=== PATIENT | female | born 1940 | race Caucasian/White ===

== ENCOUNTER 2021-03-29 01:52 | Outpatient (CLI) | payer MEDICARE, BC, SELFPAY ==
--- NOTE | 2021-03-29 15:15 | DI.CT_ITS ---
Exam(s) CT CHEST WO EXAM: CT CHEST WO CLINICAL HISTORY: F/U LUNG NODULE,R91.8. TECHNIQUE: Multi planar reconstructions were performed. CONTRAST MATERIAL: None COMPARISON: DX XR CHEST 2 VIEWS from 12/25/2020 (outside institution) FINDINGS: CHEST: LUNGS: Multiple radiodense foci in the right lung specifically in the anterior segment of the right u pper lobe, right middle lobe, and right lower lobe which correspond to the findings on the December 2020 outside institution chest x-ray. I suspect this may be aspirated material such as barium. There are no confluent infiltrates with air bronchograms. Similar findings are not seen in the opposite-left lung. There are no pleural effusions on either side. There are no focal findings in trachea and kali nstem bronchi. There is no bronchiectasis. MEDIASTINUM: There is no obvious hilar nor mediastinal adenopathy. No supraclavicular adenopathy. T here is no axillary adenopathy. Patient is cachectic CARDIAC: Heart size is normal. There is no pericardial effusion.Diameter of the ascending thoracic a lasha is slightly prominent, measuring 3.8 cm. The diameter of the mid aortic arch is 2.8 cm. The di ameter proximal descending thoracic aorta is 2.5 cm and the diameter of the distal thoracic aorta is 2.4 cm. VISUALIZED UPPER ABDOMEN:No obvious adrenal masses. OSSEOUS: No significant osseous lesions.. IMPRESSION: 1. Multiple foci of radio dense material seen in the right upper lobe, right middle lobe, and right l ower lobe, as seen on outside chest x-ray of December 2020. No associated pleural effusions. No distinct mass. 2. The above probably represents prior aspiration barium are other radiodense material. Correlation with prior barium utilization medical imaging studies is recommended. 3. The opposite-left lung is clear. There are no pleural effusions. RADIATION DOSE DELIVERED: 306.13mGy.cm Total DLP DATA REPOSITORY: All CT scans at this facility are submitted to the National Radiology Data Registry (NRDR) Dose Index Registry (DIR) with the [employer] (ACR). RADIATION OPTIMIZATION: All CT scans at this facility use at least one of these dose optimization te chniques: automated exposure control; mA and/or kV adjustment per patient size (includes targeted exa ms where dose is matched to clinical indication); or iterative reconstruction.
== END 2021-03-29 02:12 ==
PROVIDERS: PCP Nurse Practitioner Family; Visit Provider Nurse Practitioner Family
DX: R91.8 Other nonspecific abnormal finding of lung field (principal)
CPT/HCPCS: 71250

== ENCOUNTER 2021-04-25 00:56 | Outpatient (CLI) | payer MEDICARE, BC, SELFPAY ==
--- NOTE | 2021-04-25 | DI.MAMMO_ITS ---
Exam(s) MAMMO SCREENING EXAM: MAMMO SCREENING CLINICAL HISTORY: SCREENING, Z12.31 TECHNIQUE: Mammograms were interpreted according to the usual protocol including computer analysis w [employer] CAD system, tomosynthesis and C-view imaging. COMPARISON: 2015 through 2019 from [facility] in [facility] FINDINGS: The breasts are composed of heterogeneously dense fibroglandular densities, Breast Density category C . No suspicious masses or suspicious microcalcifications are seen. No skin thickening or abnormal axillary lymph nodes are seen. There has been no significant change from prior exams. IMPRESSION: BI-RADS Category 1, Negative mammogram. Yearly screening mammography is recommended. Breast Density Category C, heterogeneously Dense. The mammogram demonstrates the patient's breast tissue is dense. Dense breast tissue is very common a nd is not abnormal but dense breast tissue can make it harder to find cancer on a mammogram. Also, de nse breast tissue may increase breast cancer risk. This information about the result of the mammogram report was provided to the patient to raise their awareness. Use this report when you speak with the patient about their risks for breast cancer, which includes their family history. At that time, you may recommend additional screening tests (Ultrasound or MRI) as they might be useful based on their r isk. A negative radiographic report should not delay biopsy if a dominant or clinically suspicious mass is present. Up to ten percent of cancers are not identified on mammography. A negative report may reinforce clinical impression. Adenosis and dense breasts may obscure an underlying neoplasm. False positive reports average 6 to 10%.
== END 2021-04-25 01:16 ==
PROVIDERS: PCP Nurse Practitioner Family; Visit Provider Nurse Practitioner Family
DX: Z12.31 Encounter for screening mammogram for malignant neoplasm of breast (principal)
CPT/HCPCS: 77063; 77067

== ENCOUNTER 2021-05-21 15:10 | Outpatient (CLI) | payer MEDICARE, BC, SELFPAY ==
--- NOTE | 2021-05-21 14:45 | DI.RAD_ITS ---
Exam(s) XR HIP PELVIS ADULT BL EXAM: XR HIP PELVIS ADULT BL CLINICAL HISTORY: bilateral hip pain. TECHNIQUE: 2D digital imaging was performed. COMPARISON: No exams were available for comparison FINDINGS: No pelvic nor hip fractures. However, which are advanced osteoarthritic degenerative change noted. There is significant joint space narrowing bilaterally as well as osteophytes at level of both femora l heads. No ominous osseous lesions. Degenerative subarticular cysts are noted in both hips. IMPRESSION: Advanced degenerative changes noted both hips. DATA REPOSITORY: RADIATION DOSE DELIVERED:
== END 2021-05-21 15:11 | disposition home or self-care (01) ==
LOC: DIORS 15:11
PROVIDERS: PCP Nurse Practitioner Family; Referring Provider Nurse Practitioner Family; Visit Provider Student in an Organized Health Care Education/Training Program
DX: M25.551 Pain in right hip; M25.552 Pain in left hip; M16.0 Bilateral primary osteoarthritis of hip
CPT/HCPCS: 73521; 99203

== ENCOUNTER 2021-05-31 01:50 | Outpatient (CLI) | payer MEDICARE, BC, SELFPAY ==
--- NOTE | 2021-05-31 14:59 | W.PROCNOTE ---
Date of service: 05/31/21 Time of Service: 14:59 Procedure Note Date of procedure: 05/31/21 Procedure: Bilateral Hip Injection with Fluoroscopic Guidance Surgeon/Proceduralist/Physician: Yobani Hagen Procedure Diagnosis: Bilateral Hip Osteoarthritis Procedure Indications: Aida has had persistent pain of the BILATERAL hip and groin. Noninvasive measures have been tried. To serve as both diagnostic and therapeutic, an injection under fluoroscopy was recommended. I had discussed the risks of the procedure and the patient elected to proceed. Procedure Description: Aida was greeted in the flouroscopy room. The consent was reviewed with the patient and signed. The patient was then placed in the supine position on the fluoroscopy table. The RIGHT hip was then prepped with Chloraprep. The anterolateral injection starting point was identiifed by bony landmarks and fluoroscopy. The skin and soft tissue in the tract of the injection was anesthetized with 1% Lidocaine. A spinal needle was then inserted deep into the hip joint at the level of the lateral femoral neck under fluoroscopic guidance. A small amount of Omnipaque solution was injected to confirm intraarticular placement. Once confirmed, the hip was injected with 5cc of 0.5% Bupivicaine and 80mg of Depo-Medrol. A bandaid was placed on the injection site. The LEFT hip was then prepped with Chloraprep. The anterolateral injection starting point was identiifed by bony landmarks and fluoroscopy. The skin and soft tissue in the tract of the injection was anesthetized with 1% Lidocaine. A spinal needle was then inserted deep into the hip joint at the level of the lateral femoral neck under fluoroscopic guidance. A small amount of Omnipaque solution was injected to confirm intraarticular placement. Once confirmed, the hip was injected with 5cc of 0.5% Bupivicaine and 80mg of Depo-Medrol. A bandaid was placed on the injection site. The patient tolerated the procedure well.
--- NOTE | 2021-05-31 15:07 | DI.RAD_ITS ---
Exam(s) RF JOINT INJECTION FLUORO GUID EXAM: RF JOINT INJECTION FLUORO GUID CLINICAL HISTORY: R HIP INJ UNDER FLUORO,rt hip pain, m25.551 TECHNIQUE: Fluoroscopy provided. Radiologist not present. CONTRAST MATERIAL: None COMPARISON: No exams were available for comparison FINDINGS: Fluoroscopy was provided for Dr. Hagen during right hip therapeutic injection.. Submitted image(s) reveal needle tip placement laterally at the junction of the femoral head and neck . Intra-articular contrast was injected. Please refer to the procedure report for complete details. Cumulative Dose: veronika Marx=0.165 mGy IMPRESSION: RADIATION DOSE DELIVERED:
--- NOTE | 2021-05-31 15:08 | DI.RAD_ITS ---
Exam(s) RF JOINT INJECTION FLUORO GUID EXAM: RF JOINT INJECTION FLUORO GUID CLINICAL HISTORY: L HIP INJ UNDER FLUORO,lt hip pain, m25.552 TECHNIQUE: Fluoroscopy provided. Radiologist not present. CONTRAST MATERIAL: None COMPARISON: No exams were available for comparison FINDINGS: Fluoroscopy was provided for Dr. Hagen during therapeutic left hip injection. Submitted image(s) reveal lateral approach needle with distal tip at the junction of the lateral neck and head of the femur. Contrast injected intra-articularly Please refer to the procedure report for complete details. Cumulative Dose: Ka,r=0.094 mGy IMPRESSION: RADIATION DOSE DELIVERED:
[2021-05-31] MEDS: methylPREDNISolone ACETATE 80 MG/ML VIAL IM ×2 (15:10→15:12)
[2021-05-31] MEDS: Omnipaque 300 MG/ML 10 ML BTL IJ ×2 (15:10→15:15)
[2021-05-31] MEDS: Bupivacaine 0.5% Pres-Free 10 ML VIAL 5 ML IJ ×3 (15:11→15:17)
== END 2021-05-31 02:10 ==
PROVIDERS: PCP Nurse Practitioner Family; Visit Provider Student in an Organized Health Care Education/Training Program
DX: M25.551 Pain in right hip (principal); M25.552 Pain in left hip; M16.0 Bilateral primary osteoarthritis of hip; R10.31 Right lower quadrant pain; R10.32 Left lower quadrant pain
CPT/HCPCS: 20610; 77002; J1040

== ENCOUNTER 2021-07-06 20:57 | Outpatient (REF) | payer MEDICARE, BC, SELFPAY ==
[2021-07-06 19:48] LABS: HCT 41.5 % (36.0-46.0); MCH 27.3 pg (27.0-33.0); MCHC 31.3 % (32.0-36.0); MPV 8.7 fL (8.0-11.0); Platelet Count 250 10^3/uL (130-400); RBC 4.77 10^6/uL (3.93-5.22); RDW 13.7 % (11.7-14.6); RDW-SD 43.8 fL; WBC 5.19 10^3/uL (4.4-10.8)
[2021-07-06 20:25] LABS: Anion Gap 8.4 mmol/L (3-11); BUN 22 mg/dL (7-18); CO2 29.6 mmol/L (21.0-32.0); CREATININE 0.7 mg/dL (0.55-1.02); Calcium 9.3 mg/dL (8.5-10.1); Chloride 103 mmol/L (98-107); Glucose 104 mg/dL (74-106); Potassium 3.7 mmol/L (3.5-5.1); Sodium 141 mmol/L (136-145); TSH (W/Ref FT4) 0.33 uIU/mL (0.36-3.74)
[2021-07-06 20:49] LABS: FREE T4 1.17 ng/dL (0.76-1.46)
== END 2021-07-06 20:58 | disposition home or self-care (01) ==
LOC: NCHCN 20:57
PROVIDERS: PCP Nurse Practitioner Family; Visit Provider Nurse Practitioner Family
DX: E03.9 Hypothyroidism, unspecified (principal)
CPT/HCPCS: 80048; 85027; 84439; 84443

== ENCOUNTER 2021-08-13 11:45 | Outpatient (CLI) | payer MEDICARE, BC, SELFPAY ==
--- NOTE | 2021-08-13 11:30 | DI.RAD_ITS ---
Exam(s) XR SHOULDER RT COMPLETE 2+V EXAM: XR SHOULDER RT COMPLETE 2+V CLINICAL HISTORY: right shoulder pain. TECHNIQUE: 2D digital imaging was performed. COMPARISON: No exams were available for comparison FINDINGS: BONES: No acute fracture is present. No bony destructive lesion is seen. JOINTS: No dislocation present. Mild spurring AC joint and glenoid. SOFT TISSUE: Normal. IMPRESSION: Mild degenerative changes. DATA REPOSITORY: RADIATION DOSE DELIVERED:
== END 2021-08-13 11:46 | disposition home or self-care (01) ==
LOC: DIORS 11:46
PROVIDERS: PCP Nurse Practitioner Family; Referring Provider Nurse Practitioner Family; Visit Provider Student in an Organized Health Care Education/Training Program
DX: M25.511 Pain in right shoulder (principal); M19.011 Primary osteoarthritis, right shoulder; M75.81 Other shoulder lesions, right shoulder; M16.0 Bilateral primary osteoarthritis of hip
CPT/HCPCS: 99212; 73030

== ENCOUNTER 2022-03-22 15:41 | Outpatient (REF) | payer MEDICARE, BC, SELFPAY ==
--- NOTE | 2022-03-22 14:15 | SKI_PTH ---
PATIENT: Aida Monaco LOC: [facility] U#:[id number] AGE/SX: 81/F ROOM: RE03/22/[address]: SOCORRO Weber : 1940 BED: DIS: 03/22/2022 SPEC #: [id number] RECD: 03/22/22 17:55 STATUS: SAMIR REJuan C #: [id number] JAYDA: 03/22/22 14:[address]: Edilberto Mays DEPT: Surgical Specimen RECD BY: Kerri Gasca ENTERED: 03/22/22 17:56 SP TYPE: CHAIM BRIGHT DR: Carolin Minor Tissues: 1 - SKIN BIOPSY(SHAVE/PUNCH) 2 - SKIN BIOPSY(SHAVE/PUNCH) Procedures: SKIN LEVEL 4 Comments: [id number]
== END 2022-03-22 15:42 | disposition home or self-care (01) ==
LOC: LBN 15:41
PROVIDERS: PCP Nurse Practitioner Family; Visit Provider Physician Assistant
DX: L57.0 Actinic keratosis (principal); B07.9 Viral wart, unspecified
CPT/HCPCS: 88305

== ENCOUNTER 2022-05-23 08:42 | Emergency (ER) | payer MEDICARE, BC, SELFPAY ==
--- OUTSIDE RECORDS SUMMARY | 2022-05-23 08:48 | XMS_ITS ---
:1940 Author Name Keyona Reyna Care Team Providers Name Role Phone Keyona Reyna Unavailable Unavailable PROBLEMS Type Condition ICD9-CM PMO50-MK Onset Condition SNOMED Cod e Code Code Dates Status Problem Abnormal results of R94.6 Jul, Active 610580394 thyroid function 2019 studies Problem Age-related M81.0 Jul, Active 28688138 2 osteoporosis without 2018 current pathological fracture Problem Postprocedural E89.0 Dec, Active 69093 002 hypothyroidism 2019 Problem Body mass index (BMI) Z68.21 Jul, Active 35422511 21.0-21.9, adult 2018 Problem Hypercalcemia 275.42 Apr, Active 547033 09 2014 Problem Body mass index (BMI) Z68.1 Jul, Active 230958719 19 or less, adult 2017 Problem Unspecified vitamin D 268.9 Apr, Active 37821988 deficiency 2014 Problem Body mass index (BMI) Z68.20 Jan, Active 23603950 20.0-20.9, adult 2017 Problem Hypercalcemia E83.52 Aug, Active 838832 09 2019 Problem Vitamin D deficiency, E55.9 Apr, Active 01916642 unspecified 2014 Problem Primary E21.0 Jul, Active 49727216 hyperparathyroidism 2018 Problem Impaired fasting 790.21 Apr, Active 390 398511 glucose 2014 ALLERGIES No Known Allergies ENCOUNTERS Encounter Location Date Diagnosis [facility] [address] Dec, [facility] [address] [place] [address] [facility] [address] Sep, [place] [address] [facility] [address] Sep, Prima ry hyperparathyroidism [facility] [address] E21.0 ; Post procedural [place] hypothyroidism E89.0 and [address] Age-related oste oporosis without current pathological fracture M81.0 [facility] [address] Jun, [facility] [address] [place] [address] [facility] [address] Apr, [place] [address] [facility] [address] Apr, [place] [address] [facility] [address] Mar, [facility] [address] [place] [address] [facility] [address] Mar, Prima ry hyperparathyroidism [facility] [address] E21.0 ; Post procedural [place] hypothyroidism E89.0 and [address] Age-related oste oporosis without current pathological fracture M81.0 [facility] [address] Mar, [address] [place] [address] [facility] [address] Jul, [facility] [address] [place] [address] [facility] [address] Jun, Prima ry hyperparathyroidism [address] E21.0 ; Post procedural [place] hypothyroidism E89.0 and [address] Age-related oste oporosis without current pathological fracture M81.0 [facility] Do not use Mar, [place] [address] [facility] Do not use Mar, [place] [address] [facility] [address] Dec, Prima ry hyperparathyroidism [address] E21.0 ; Post procedural [place] hypothyroidism E89.0 and [address] Age-related oste oporosis without current pathological fracture M81.0 [facility] [address] Aug, Prima ry hyperparathyroidism [address] E21.0 ; Hype rcalcemia E83.52 [place] ; Age-related osteoporosis [address] without current pathological fracture M81.0 a nd Abnormal results of thyro id function studies R94.6 UNKNOWN Aug, Primary hyperpar athyroidism E21.0 ; Hypercal cemia E83.52 and Abnormal res ults of thyroid function studies R94.6 UNKNOWN Jul, Primary hyperpar athyroidism E21.0 and Abnorm al results of thyroid function studies R94.6 [facility] [address] [place] [address] Jan, Prima ry hyperparathyroidism [address] E21.0 and Virgilio dy mass index [place] (BMI) 21.0-21. 9, adult Z68.21 [address] [facility] [address] [place] [address] Jan, Prima ry hyperparathyroidism [address] E21.0 ; Marisabel min D deficiency, [place] unspecified E5 5.9 ; [address] Age-related oste oporosis without current pathological fracture M81.0 a nd Body mass index (BMI) 21.0 -21.9, adult Z68.21 [facility] [address] [place] [address] Jul, Prima ry hyperparathyroidism [address] E21.0 ; Age- related [place] osteoporosis w [facility] current [address] pathological fra cture M81.0 and Body mass in dex (BMI) 21.0-21.9, adult Z68.21 [facility] [address] [place] [address] Jan, Prima ry hyperparathyroidism [address] E21.0 ; Age- related [place] osteoporosis w [facility] current [address] pathological fra cture M81.0 and Body mass in dex (BMI) 20.0-20.9, adult Z68.20 [facility] [address] [place] [address] Jul, Prima ry hyperparathyroidism [address] E21.0 ; Age- related [place] osteoporosis w [facility] current [address] pathological fra cture M81.0 and Body mass in dex (BMI) 19 or less, adult Z 68.1 [facility] [address] [place] [address] Jan, Prima ry hyperparathyroidism [address] E21.0 ; Marisabel min D deficiency, [place] unspecified E5 5.9 and [address] Age-related oste oporosis without current pathological fracture M81.0 [facility] [address] [place] [address] Apr, Prima ry hyperparathyroidism [address] E21.0 and Ag e-related [place] osteoporosis w [facility] current [address] pathological fra cture M81.0 [facility] [address] [place] [address] October, [address] [place] [address] [facility] [address] [place] [address] Apr, Unspe cified vitamin D [address] deficiency 2 68.9 ; [place], [place] Hypercalcemia 275.42 and [address] Impaired fasting glucose 790.21 [facility] [address] [place] [address] Jan, [address] [place] [address] [facility] [address] [place] [address] Jul, [address] [place] [address] [facility] [address] [place] [address] Apr, Unspe cified vitamin D [address] deficiency 2 68.9 ; [place], [place] Hypercalcemia 275.42 and [address] Impaired fasting glucose 790.21 IMMUNIZATIONS Vaccine Route Administration Date Status Prolia 60mg / 55606 SC Subcutaneous September 19, 2020 Administered SOCIAL HISTORY Never Assessed REASON FOR REFERRAL FUNCTIONAL STATUS PLAN OF CARE Activity Details Future Test COMP. METABOLIC PANEL (14) ( CMP14) 14052036 Future Test TSH+Free T4 20210119 Future Test COMP. METABOLIC PANEL (14) ( CMP14) [id number] Future Test TSH+Free T4 32106588 Future Test bone density, dual energy x- ray absorptiometry 20200215 Future Test COMP. METABOLIC PANEL (14) ( CMP14) 20200117 Future Test TSH+FREE T4 20200117 VITAL SIGNS Temperature 97.5 degrees Fahrenheit 2020-03-23 Weight 102 lbs 2020-09-19 Height 61.0 in 2020-09-19 BMI 19.27 kg/m2 2020-09-19 Blood pressure systolic 118 mm Hg 2020-09-19 Blood pressure diastolic 70 mm Hg 2020-09-19 MEDICATIONS Medication Instructions Dosage Frequency Start End Duration Statu s Date Date Levothyroxine Orally Once a 1 tablet 24h 90 days Act scout Sodium 75 MCG day in the morning on an empty stomach Metoprolol Orally Once a 1/2 tablet 24h 30 day(s) Ac tive Succinate ER 25 day MG Levothyroxine Orally Once a 1 tablet 24h Jul, day(s) A ctive Sodium 75 MCG day in the 2019 morning on an empty stomach Aspirin 81 81 MG Orally Once a 1 tablet 24h Active day DIVALPROEX 250 PO QD 1 24h Jan, PROCEDURES Procedure Date Ordered Result Body Site THER/PROPH/DIAG INJ- SC/IM September 19, 2020 INJECTION DENOSUMAB 1 MG September 19, 2020 RESULTS Name Result Date Reference Range [facility] 2020-03-20 A/G Ratio 1.9 1.2-2.2 Albumin 4.2 3.7-4.7 Alkaline Phosphatase 60 39-117 ALT (SGPT) 13 0-32 AST (SGOT) 43 0-40 Bilirubin, Total 0.4 0.0-1.2 BUN 17 8-27 BUN/Creatinine Ratio 19 12-28 Calcium 9.4 8.7-10.3 Carbon Dioxide, Total 25 20-29 Chloride 105 96-106 Creatinine 0.90 0.57-1.00 eGFR If Africn Am 71 >59 eGFR If NonAfricn Am 62 >59 Globulin, Total 2.2 1.5-4.5 Glucose 109 65-99 Potassium 4.1 3.5-5.2 Protein, Total 6.4 6.0-8.5 Sodium 145 134-144 [facility] 2019-07-12 ALBUMIN/GLOBULIN RATIO 2.5 1.0-2.5 ALBUMIN 4.7 3.6-5.1 ALKALINE PHOSPHATASE 45 33-130 ALT 16 6-29 AST 37 10-35 BILIRUBIN, TOTAL 0.5 0.2-1.2 UREA NITROGEN (BUN) 20 7-25 BUN/CREATININE RATIO NOT APPLICABLE 6-22 CALCIUM 10.0 8.6-10.4 CARBON DIOXIDE 31 20-32 CHLORIDE 102 98-110 CREATININE 0.83 0.60-0.93 eGFR 79 > OR = 60 eGFR NON-AFR. THAI 68 > OR = 60 GLOBULIN 1.9 1.9-3.7 GLUCOSE 98 65-99 POTASSIUM 4.3 3.5-5.3 PROTEIN, TOTAL 6.6 6.1-8.1 SODIUM 142 135-146 TSH+Free T4 2020-03-20 T4,Free(Direct) 1.27 0.82-1.77 TSH 2.560 0.450-4.500 TSH+FREE T4 2019-07-12 T4, FREE 1.4 0.8-1.8 TSH 1.31 0.40-4.50 VITAMIN D,25-OH,TOTAL,IA COMMENT VITAMIN D,25-OH,TOTAL,IA 49 ng/mL PTH, INTACT AND CALCIUM CALCIUM 9.7 mg/dL Calcium SerPl-mCnc PARATHYROID HORMONE, INTACT 81 pg/mL PTH-Intact SerPl-mCnc BASIC METABOLIC PANEL BASIC METABOLIC PANEL BUN/CREATININE RATIO NOT APPLICABLE (calc) CALCIUM 9.7 mg/dL CARBON DIOXIDE 29 mmol/L CHLORIDE 102 mmol/L COMMENT Creatinine 0.72 mg/dL eGFR 95 mL/min/1.73m2 eGFR NON-AFR. THAI 82 mL/min/1.73m2 GLUCOSE 92 mg/dL POTASSIUM 4.2 mmol/L SODIUM 141 mmol/L UREA NITROGEN (BUN) 18 mg/dL VITAMIN D,25-OH,TOTAL,IA COMMENT VITAMIN D,25-OH,TOTAL,IA 66 ng/mL CALCIUM, IONIZED Ca-I SerPl-mCnc CALCIUM, IONIZED 5.9 mg/dL PTH, INTACT AND CALCIUM CALCIUM 10.6 mg/dL Calcium SerPl-mCnc PARATHYROID HORMONE, INTACT 59 pg/mL PTH-Intact SerPl-mCnc CALCIUM, IONIZED Ca-I SerPl-mCnc CALCIUM, IONIZED 5.6 mg/dL PTH, INTACT AND CALCIUM CALCIUM 10.5 mg/dL Calcium SerPl-mCnc PARATHYROID HORMONE, INTACT 55 pg/mL PTH-Intact SerPl-mCnc BASIC METABOLIC PANEL W/eGFR BUN SerPl-mCnc BUN/Creat SerPl BUN/CREATININE RATIO NOT APPLICABLE (calc) CALCIUM 9.5 mg/dL Calcium SerPl-mCnc CARBON DIOXIDE 27 mmol/L CHLORIDE 105 mmol/L Chloride SerPl-sCnc CO2 SerPl-sCnc COMMENT Creat SerPl-mCnc Creatinine 0.70 mg/dL eGFR 100 mL/min/1.73m2 eGFR NON-AFR. THAI 87 mL/min/1.73m2 GFR/BSA pred.black SerPl MDRD-vRate GFR/BSA.pred SerPl MDRD-vRate GLUCOSE 105 mg/dL Glucose [facility] POTASSIUM 4.3 mmol/L Potassium SerPl-sCnc SODIUM 141 mmol/L Sodium SerPl-sCnc UREA NITROGEN (BUN) 25 mg/dL VITAMIN D, 25-HYDROXY, LC/MS/MS 25(OH)D3 [facility] VITAMIN D, 25 OH, D2 VITAMIN D, 25 OH, D3 VITAMIN D, 25 OH, TOTAL VITAMIN D, 25-OH, D2 VITAMIN D, 25-OH, D3 VITAMIN D, 25-OH, TOTAL VITAMIN D,25-OH,TOTAL,IA 43 ng/mL PHOSPHATE ( PHOSPHORUS) PHOSPHATE ( PHOSPHORUS) 2.8 mg/dL Phosphate [facility] PTH, INTACT AND CALCIUM CALCIUM 9.5 mg/dL Calcium [facility] PARATHYROID HORMONE, INTACT 75 pg/mL PTH-Intact [facility] BASIC METABOLIC PANEL W/eGFR BUN [facility] BUN/Creat SerP BUN/CREATININE RATIO NOT APPLICABLE (calc) CALCIUM 10.3 mg/dL Calcium [facility] CARBON DIOXIDE 29 mmol/L CHLORIDE 104 mmol/L Chloride [facility] CO2 SerPl-sCnc COMMENT Creat SerPl-nc Creatinine 0.85 mg/dL eGFR 80 mL/min/1.73m2 eGFR NON-AFR. THAI 69 mL/min/1.73m2 GFR/BSA pred.black SerPl MDRD-vRate GFR/BSA.pred SerPl MDRD-vRate GLUCOSE 96 mg/dL Glucose [facility] POTASSIUM 4.5 mmol/L Potassium SerPl-sCnc SODIUM 144 mmol/L Sodium [facility] UREA NITROGEN (BUN) 19 mg/dL VITAMIN D, 25-HYDROXY, LC/MS/MS 25(OH)D3 [facility] VITAMIN D, 25 OH, D2 <4 ng/mL VITAMIN D, 25 OH, D3 41 ng/mL VITAMIN D, 25 OH, TOTAL 41 ng/mL VITAMIN D, 25-OH, D2 VITAMIN D, 25-OH, D3 VITAMIN D, 25-OH, TOTAL VITAMIN D,25-OH,TOTAL,IA PHOSPHATE ( PHOSPHORUS) PHOSPHATE ( PHOSPHORUS) 3.5 mg/dL Phosphate SerPl-mCnc CALCIUM, IONIZED Ca-I SerPl-mCnc CALCIUM, IONIZED TNP mg/dL PTH, INTACT AND CALCIUM CALCIUM 10.5 mg/dL Calcium SerPl-mCnc PARATHYROID HORMONE, INTACT 56 pg/mL PTH-Intact SerPl-mCnc BASIC METABOLIC PANEL W/eGFR BUN SerPl-mCnc BUN/Creat SerPl BUN/CREATININE RATIO NOT APPLICABLE (calc) CALCIUM 10.3 mg/dL Calcium SerPl-mCnc CARBON DIOXIDE 30 mmol/L CHLORIDE 104 mmol/L Chloride SerPl-sCnc CO2 SerPl-sCnc COMMENT Creat SerPl-mCnc Creatinine 0.85 mg/dL eGFR 80 mL/min/1.73m2 eGFR NON-AFR. THAI 69 mL/min/1.73m2 GFR/BSA pred.black SerPl MDRD-vRate GFR/BSA.pred SerPl MDRD-vRate GLUCOSE 100 mg/dL Glucose [facility] POTASSIUM 4.3 mmol/L Potassium SerPl-sCnc SODIUM 145 mmol/L Sodium SerPl-sCnc UREA NITROGEN (BUN) 24 mg/dL Hemoglobin A1c Estimated Average Glucose Hemoglobin A1c 5.6 % of total Hgb Hgb A1c MFr Bld VITAMIN D, 25-HYDROXY, LC/MS/MS 25(OH)D3 [facility] VITAMIN D, 25 OH, D2 <4 ng/mL VITAMIN D, 25 OH, D3 35 ng/mL VITAMIN D, 25 OH, TOTAL 35 ng/mL VITAMIN D, 25-OH, D2 VITAMIN D, 25-OH, D3 VITAMIN D, 25-OH, TOTAL VITAMIN D,25-OH,TOTAL,IA CALCIUM, 24 HOUR URINE (W/ CREATININE) 24 HR URINE VOLUME Calcium 24h Ur-mRate CALCIUM, 24 HOUR URINE 220 mg/24 h Calcium/creat 24H Ur-mRto CALCIUM/CREATININE RATIO 212 mg/g creat Creat 24h Ur-mRate CREATININE, 24 HOUR URINE 1.04 g/24 h CALCIUM, IONIZED Ca-I SerPl-mCnc CALCIUM, IONIZED 5.7 mg/dL PTH, INTACT AND CALCIUM CALCIUM 10.3 mg/dL Calcium SerPl-mCnc PARATHYROID HORMONE, INTACT 42 pg/mL PTH-Intact SerPl-mCnc REASON FOR VISIT Insurance Providers [facility] Member Patient Patient Patient Patient Patient Subscriber Subscriber Subscriber Group Insurance Plan Plan Plan Plan ID Relationship Address Phone Name Date of ID Name Date of No Type Insurance Insurance Insurance Coverage to Subscriber Address Phone Name Dates Medicare [phone] Medicare self Aida [id number] [facility] [id number] [address] [facility] [address] [employer] [phone] [employer] self Aida [id number] Y [id number] [address] [facility] [address] [place] [place] [address] [facility] [address] MEDICAL (GENERAL) HISTORY Type Description Date Medical History migraine headaches Medical History Hypothyroidism Medical History hyperparathyroidism Medical History osteoporosis Surgical History cataract surgery ,notes : bilaterally 20 16
--- OUTSIDE RECORDS SUMMARY | 2022-05-23 08:48 | XMS_ITS ---
:1940 Author Organization [facility] Otolaryngology Address [address], [place] [id number] Care Team Providers Name Role Phone Edilberto Mays Unavailable Unavailable PROBLEMS Type Condition ICD9-CM NNM15-OX Onset Condition SNOMED Cod e Code Code Dates Status Problem Anger R45.4 Active 34627360 Problem Colon polyp K63.5 Active 03601259 Problem Hematuria R31.9 Active 80705886 Problem Hyperparathyroidism E21.3 Active 39839454 Problem Hip pain M25.559 Active 65144799 Problem Lung nodule R91.1 Active 32399579 5 Problem Shoulder pain, right M25.511 Active 256063893 Problem Gas R14.3 Active 92344939 Problem Abdominal discomfort R10.9 Active 47375759 Problem Osteoporosis M81.0 Active 5062349 6 ALLERGIES No Known Allergies ENCOUNTERS Encounter Location Date Diagnosis [address], [place], [place] sm of unspecified [facility] [address] be havior of bone, soft [place], [place] tissue, and skin D49.[id number], [place], [facility] at [facility] 5 [address] [place], [place] [id number] Gastroenterology [address] [place] [address] Jan, Upper abdomin al pain [address] R10.10 ; Pyrosis R12 ; [place], [place] Dyspepsia R10.13 ; [id number] Fecal urgency R1 5.2 ; Rectal discomfor t K62.89 and Colon cancer screening Z12.11 Gastroenterology [address] [facility] [address] Jan, [address] [place], [place] [id number] IMMUNIZATIONS No Known Immunizations SOCIAL HISTORY Never Assessed REASON FOR REFERRAL FUNCTIONAL STATUS PLAN OF CARE Activity Details Follow Up prn Reason:calling pathology results VITAL SIGNS Height 65 in 2022-03-22 Height 65 in 2022-03-21 Height 65 in 2022-02-12 Weight 104 lbs 2022-03-22 Weight 104 lbs 2022-02-12 Temperature 95.8 degrees Fahrenheit 2022-02-12 Heart Rate 88 /min 2022-03-22 Heart Rate 77 /min 2022-02-12 Oximetry 97 2022-03-22 Oximetry 95 2022-02-12 BMI 17.30 kg/m2 2022-03-22 BMI 17.30 kg/m2 2022-02-12 Blood pressure systolic 130 mm Hg 2022-03-22 Blood pressure diastolic 72 mm Hg 2022-03-22 MEDICATIONS Medication Instructions Dosage Frequency Start End Duration Statu s Date Date Citracal +D3 as directed Active 250-107-500 MG-MG-UNIT Multivitamin - Orally Once a 1 tablet 24h 30 day(s) Active day Omeprazole 40 Orally Once a 1 capsule 24h Jan, day(s) Not-Takin MG day 30 minutes 2021 g before morning meal SUMAtriptan - as directed Active Celecoxib 200 Orally Once a 1 capsule 24h 30 day(s) Active MG day with food Levo-T 75 MCG Orally Once a 1 tablet in 24h 30 day(s ) Active day the morning on an empty stomach [id number] Orally every 6 2 tablets 6h A ctive Buffered hrs as needed 227-194-33 MG Prolia 60 MG/ML as directed Acti ve PROCEDURES Procedure Date Ordered Result Body Site SHAVE FACE .6 - 1.0 CM Mar 22, 2022 SHAVE FACE <.5 CM Mar 22, 2022 RESULTS No Results REASON FOR VISIT Skin Follow Up, ENT Hx of skin cancer, chart preload, GI-abdominal discomfort Insurance Providers [facility] Member Patient Patient Patient Patient Patient Subscriber Subscriber Subscriber Group Insurance Plan Plan Plan Plan ID Relationship Address Phone Name Date of ID Name Date of No Type Insurance Insurance Insurance Coverage to Subscriber Address Phone Name Dates MEDICARE [id number] MEDICARE self [place] [id number] PART A [id number] PART A [place] [facility] [id number] BCBS OUT [phone] BCBS OUT self Aida 1940 [id number] OF AREA ATTN [address] [place] [address]40 CLAIMS [place] [facility] [id number]
[2022-05-23 08:53] VITALS: BP 117/79; PULSE 88; RESP 16; TEMP 36.1; O2SAT 98
[2022-05-23 09:44] LABS: Abs Immature Grans 0.01 10^3/uL (0.0-0.06); HCT 40.4 % (36.0-46.0); HGB 13.3 g/dL (11.2-15.7); MCH 27.6 pg (27.0-33.0); MCHC 32.9 % (32.0-36.0); MCV 84 fL (80-95); MPV 8.6 fL (8.0-11.0); Platelet Count 192 10^3/uL (130-400); RBC 4.82 10^6/uL (3.93-5.22); RDW 13.5 % (11.7-14.6); WBC 3.31 10^3/uL (4.4-10.8)
--- NOTE | 2022-05-23 09:48 | ED.GENADUL_ITS ---
Discharge Plan Disposition Patient Disposition: Home Condition: Stable Discharge Details Clinical Impression: Diarrhea Primary Care Provider: Carolin Minor ED Provider: Benja Powell Home Meds and New Rx's Prescriptions: Continued calcium citrate-vitamin D3 [Citracal + D Maximum] 315 mg-6.25 mcg (250 unit) tablet 2 tab PO DAILY multivitamin Tablet 1 tab PO DAILY Prolia 60 mg/mL syringe 60 mg subcut [id number] levothyroxine [Levo-T] 75 mcg tablet 75 mcg PO DAILY celecoxib 200 mg capsule See Rx Instructions .ROUTE .COMPLEX Qty: 30 6RF Dose Instruction: TAKE ONE CAPSULE BY MOUTH EVERY DAY FOR PAIN AND INFLAMMATION Rx Instructions: TAKE ONE CAPSULE BY MOUTH EVERY DAY FOR PAIN AND INFLAMMATION omeprazole 40 mg capsule,delayed release(DR/EC) 40 cap PO DAILY Label Comments: TAKE ONE CAPSULE BY MOUTH EVERY MORNING 30 MIN BEFORE MEAL Discharge Instructions Instructions: Acute Diarrhea (ED) Additional Instructions: Laboratory values reveal no obvious emergent process. Plenty of fluids to avoid dehydration. [id number] medication such as Imodium for symptomatic control. Please watch for new or worsening symptoms and return to the ER for any concerns. I have given you the name and number of our local surgical team should reach out to them to discuss colonoscopy if indicated. Lastly, please contact your primary care provider to discuss your ER visit and need for outpatient reevaluation. Referrals: Kenny Brennan MD [ [facility] STAFF PHYSICIAN] - Medical Decision Making This is a 81-year-old female with a history of thyroid disease, GERD, reports some loose stools over the past 7 days but multiple episodes of diarrhea overnight prompting her to come to the ER. She denies recent antibiotic use, sick contacts, or bad food exposure. Denies fever, chest pain, abdominal pain, nausea, vomiting, black tarry stools or bright red blood in her stools. Patient states that she was able to take her medications this morning and has had no additional episodes of diarrhea. Clinically she appears well, nontoxic, hemodynamically stable, abdomen is soft, nontender. Plan is obtain IV access, obtain routine screening laboratory values, send stool for a C. difficile and pathogens if able to provide a stool sample. Patient remains hemodynamically stable. CBC reveals a white blood cell count of 3.31, absolute lymphocytes 0.89 otherwise unremarkable. Electrolytes are unremarkable. Anion gap of 12.5 BUN 31 creatinine 1.0 with a GFR of 57.31. Glucose 99. Urinalysis without signs of obvious infection. Patient was observed in the ER for approximately 3 hours and did not have an episode of diarrhea. She was able to provide a small solid stool sample, C. difficile negative. Discussed work-up with patient and family. Patient has not had any diarrhea here in the ER, laboratory values are unremarkable for any obvious emergent process, no clear indication to initiate CT imaging. Discussed options, patient reports that she was told she was too old for colonoscopy and believes that she is due for a colonoscopy. I will provide her a referral to our surgical Associates. Standard discharge and return precautions were provided. Patient understands, is agreeable to this plan, and has no additional questions or concerns upon discharge. This documentation was generated using [employer]ation system, please disregard any oddities of phrase or misspellings. Medical Records Medical records reviewed: Yes I reviewed the patient's medical records. Lab Data Lab results reviewed: Yes I reviewed the patient's lab results. Labs: 05/23/22 11:05 Urine - Reflex from Ua Urine Culture - Pending Laboratory Tests Range/Units 05/23/22 05/23/22 05/23/22 09:30 09:30 10:08 WBC (4.4-10.8) 10^3/uL 3.31 L RBC (3.93-5.22) 10^6/uL 4.82 Hgb (11.2-15.7) g/dL 13.3 Hct (36.0-46.0) % 40.4 MCV (80-95) fL 84 MCH (27.0-33.0) pg 27.6 MCHC (32.0-36.0) % 32.9 RDW (11.7-14.6) % 13.5 Plt Count (130-400) 10^3/uL 192 MPV (8.0-11.0) fL 8.6 Immature Gran % See Differential Neutrophils % 55.0 Lymphocytes % 22.0 Atypical Lymphs % 5 Monocytes % 15.0 Eosinophils % 2.0 Basophils % 1.0 Nucleated RBC % (0.0-0.3) % 0.0 Absolute Neutrophils (1.2-6.7) 10^3/uL 1.82 Absolute Lymphocytes (1.2-3.4) 10^3/uL 0.89 L Absolute Monocytes (0.1-0.8) 10^3/uL 0.50 Absolute Eosinophils (0.0-0.7) 10^3/uL 0.07 Absolute Basophils (0.0-0.2) 10^3/uL 0.03 RBC Morphology Normal Sodium (136-145) mmol/L 140 Potassium (3.5-5.1) mmol/L 3.8 Chloride (98-107) mmol/L 103 Carbon Dioxide (21.0-32.0) mmol/L 24.5 Anion Gap (3-11) mmol/L 12.5 H BUN (7-18) mg/dL 31 H Creatinine (0.55-1.02) mg/dL 1.0 Est GFR (CKD-EPI 2020) (mL/min/1.73m2) 57.31 Glucose (74-106) mg/dL 99 Calcium (8.5-10.1) mg/dL 9.5 Total Bilirubin (0.2-1.0) mg/dL 0.6 AST (15-37) U/L 69 H ALT (14-59) U/L 40 Alkaline Phosphatase (46-116) U/L 84 Total Protein (6.4-8.2) g/dL 7.5 Albumin (3.4-5.0) g/dL 4.0 Urine Color (Yellow) Urine Clarity (Clear) Urine pH (5-8) Ur Specific [place] (1.005-1.025) Urine Protein (Negative) mg/dL Urine Ketones (Negative) mg/dL Urine Blood (Negative) Urine Nitrite (Negative) Urine Bilirubin (Negative) Urine Urobilinogen (Up TO 0.2) EU/dL Ur Leukocyte Esterase (Negative) Urine RBC (0-2) HPF Urine WBC (0-5) HPF Ur Epithelial Cells (Negative) HPF Urine Crystals (Negative) HPF Urine Bacteria (Negative) HPF Urine Casts (Negative) LPF Urine Mucus (Negative) Ur Culture Indicated? Urine Glucose (Negative) mg/dL Stool Campylobacter PCR Cancelled Stl C.difficile Tox PCR (Negative) Stool Salmonella PCR Cancelled Stool Shigella PCR Cancelled Shiga Toxin (PCR) Cancelled Range/Units 05/23/22 05/23/22 10:08 11:05 WBC (4.4-10.8) 10^3/uL RBC (3.93-5.22) 10^6/uL Hgb (11.2-15.7) g/dL Hct (36.0-46.0) % MCV (80-95) fL MCH (27.0-33.0) pg MCHC (32.0-36.0) % RDW (11.7-14.6) % Plt Count (130-400) 10^3/uL MPV (8.0-11.0) fL Immature Gran % Neutrophils % Lymphocytes % Atypical Lymphs % Monocytes % Eosinophils % Basophils % Nucleated RBC % (0.0-0.3) % Absolute Neutrophils (1.2-6.7) 10^3/uL Absolute Lymphocytes (1.2-3.4) 10^3/uL Absolute Monocytes (0.1-0.8) 10^3/uL Absolute Eosinophils (0.0-0.7) 10^3/uL Absolute Basophils (0.0-0.2) 10^3/uL RBC Morphology Sodium (136-145) mmol/L Potassium (3.5-5.1) mmol/L Chloride (98-107) mmol/L Carbon Dioxide (21.0-32.0) mmol/L Anion Gap (3-11) mmol/L BUN (7-18) mg/dL Creatinine (0.55-1.02) mg/dL Est GFR (CKD-EPI 2020) (mL/min/1.73m2) Glucose (74-106) mg/dL Calcium (8.5-10.1) mg/dL Total Bilirubin (0.2-1.0) mg/dL AST (15-37) U/L ALT (14-59) U/L Alkaline Phosphatase (46-116) U/L Total Protein (6.4-8.2) g/dL Albumin (3.4-5.0) g/dL Urine Color (Yellow) Yellow Urine Clarity (Clear) Sl Cloudy Urine pH (5-8) 6.5 Ur Specific [place] (1.005-1.025) >= 1.030 H Urine Protein (Negative) mg/dL 30 H Urine Ketones (Negative) mg/dL Trace H Urine Blood (Negative) Small H Urine Nitrite (Negative) Negative Urine Bilirubin (Negative) Negative Urine Urobilinogen (Up TO 0.2) EU/dL 0.2 Ur Leukocyte Esterase (Negative) Negative Urine RBC (0-2) HPF 10-20 H Urine WBC (0-5) HPF 0-2 Ur Epithelial Cells (Negative) HPF Rare Urine Crystals (Negative) HPF Few Amorphous Urine Bacteria (Negative) HPF Few Urine Casts (Negative) LPF Urine Mucus (Negative) Moderate Ur Culture Indicated? Yes Urine Glucose (Negative) mg/dL Negative Stool Campylobacter PCR Stl C.difficile Tox PCR (Negative) Negative Stool Salmonella PCR Stool Shigella PCR Shiga Toxin (PCR) Sign Out No HPI General Mode of arrival: ambulatory . Date/Time Provider Initiated Documentation: 05/23/22 09:00 . Limitations to Documentation: no limitations . Information obtained by: patient and family . History of Present Illness 81 year old F presents to the emergency department with the chief complaint of Diarrhea, described as moderate, with intensity rated at 4. Quality is described as other (no pain, just gassy), and is localized to the abdomen. Patient reports no radiation. Patient started experiencing this week(s) (1, worse x 1 day) and it has been now resolved. No relieving factors improve symptom(s), No exacerbating factors reported . Patient notes no other symptoms.. Patient did receive the following treatments prior to arrival, n one Related Data Home Medications Medication Instructions Recorded Confirmed calcium citrate 315 mg 2 tab PO DAILY 05/21/21 05/23/22 calcium-vitamin D3 6.25 mcg (250 unit) tablet (Citracal + Vitamin D Maximum) denosumab 60 mg/mL subcutaneous 60 mg subcut [id number] 05/21/21 05/23/22 syringe (Prolia) levothyroxine 75 mcg tablet 75 mcg PO DAILY 05/21/21 05/23/22 (Levo-T) multivitamin 1 tab PO DAILY 05/21/21 05/23/22 celecoxib 200 mg capsule See Rx Instructions .Route 04/02/22 05/23/22 .COMPLEX #30 caps omeprazole 40 mg capsule,delayed 40 cap PO DAILY 05/23/22 05/23/22 release Previous Rx's Medication Instructions Recorded celecoxib 200 mg capsule See Rx Instructions .Route 04/02/22 .COMPLEX #30 caps Allergies Allergy/AdvReac Type Severity Reaction Status Date / Time No Known Allergies Allergy Verified 05/23/22 08:57 General Stated Complaint: Nausea/Vomit/Diar CARLEY: 3 Review of Systems Constitutional Constitutional: Denies fatigue and Denies fever(s) Cardiovascular Cardiovascular: Denies chest pain and Denies dyspnea Respiratory Respiratory: Denies dyspnea Gastrointestinal Gastrointestinal: Denies abdominal pain, Denies melena, Denies hematochezia, Reports diarrhea, Reports loose stools, Denies nausea and Denies vomiting Genitourinary Genitourinary: Denies dysuria Musculoskeletal Musculoskeletal: Denies back pain Integumentary/Breasts Skin/Breast: Denies rash Endocrine Endocrine: Denies fatigue Hematologic/Lymphatic Hematologic/Lymphatic: Denies easy bleeding and Denies easy bruising PFSH All Active Problems Diarrhea (Acute) Right rotator cuff tendonitis (Acute) Osteoporosis (Chronic) Hypothyroidism (Chronic) Bilateral hip joint arthritis (Acute) Bilateral hip injections under fluoroscopy: 05/31/2021 Medical History History of hyperparathyroidism Social History Smoking/Tobacco Use Status: Never Smoking risk assessment performed?: Yes Alcohol Intake: never Substance use type: does not use Do you feel safe at home: Yes Do you feel safe in your relationship?: Yes Exam Const General: cooperative, healthy appearing, comfortable and no acute distress Orientation: alert and awake [facility] Head: normal to inspection, normocephalic and atraumatic Face and sinus: normal facial exam Mouth: moist mucous membranes Throat: posterior oropharynx normal Eyes General: appearance normal, both eyes and all related structures Conjunctivae: conjunctivae normal Neck Neck: normal visual inspection, full ROM, no meningeal signs, trachea midline and supple Resp Effort & Inspection: normal respiratory effort and able to speak in complete sentences Auscultation: clear to auscultation bilaterally Cardio Rate: regular rate Rhythm: regular rhythm GI Palpation: soft, not firm, no guarding, no pulsatile masses and nontender Auscultation: normal bowel sounds Back/Spine/Pelvis Back: no CVA tenderness and No back tenderness Skin General skin exam: no rashes or lesions noted Neuro General: patient alert, patient awake, moves all extremities and no focal motor deficits Cognition: normal cognition Speech: speech normal Gait: normal gait Motor: muscle tone normal throughout Sensory Exam: no sensory deficits noted Extrem General: normal to inspection, full ROM and capillary refill normal Psych Appearance: grossly normal Mental Status: mental status grossly normal Course Vital Signs Vital signs: Vital Signs Temperature 36.1 C L 05/23/22 08:53 Pulse 88 05/23/22 08:53 Respiratory Rate 16 05/23/22 08:53 Blood Pressure 117/79 05/23/22 08:53 Pulse Oximetry 98 05/23/22 08:53 Temperature 36.1 C L 05/23/22 08:53 Temperature Source Tympanic 05/23/22 08:53 Pulse 88 05/23/22 08:53 Respiratory Rate 16 05/23/22 08:53 Respiratory Effort 05/23/22 08:56 Blood Pressure 117/79 05/23/22 08:53 Blood Pressure Position Sitting 05/23/22 08:53 Pulse Oximetry 98 05/23/22 08:53 Oxygen Delivery Method Room Air 05/23/22 08:53 Oxygen Flow Rate 0 05/23/22 08:53 Pain Level 0 05/23/22 08:53
[2022-05-23 10:01] LABS: ALT 40 U/L (14-59); AST 69 U/L (15-37); Alkaline Phosphatase 84 U/L (46-116); Anion Gap 12.5 mmol/L (3-11); BUN 31 mg/dL (7-18); Bilirubin, Total 0.6 mg/dL (0.2-1.0); CO2 24.5 mmol/L (21.0-32.0); Calcium 9.5 mg/dL (8.5-10.1); Chloride 103 mmol/L (98-107); Estimated GFR 57.31 (mL/min/1.73m2); Glucose 99 mg/dL (74-106); Potassium 3.8 mmol/L (3.5-5.1); Sodium 140 mmol/L (136-145); Total Protein 7.5 g/dL (6.4-8.2)
[2022-05-23 10:15] LABS: Absolute Lymphocyte Count 0.89 10^3/uL (1.2-3.4); Absolute Neutrophil Count 1.82 10^3/uL (1.2-6.7); Atypical Lymphocytes % 5
[2022-05-23 10:16] LABS: Absolute Basophil Count 0.03 10^3/uL (0.0-0.2); Absolute Eosinophil Count 0.07 10^3/uL (0.0-0.7); Diff Comment Manual Differential; RBC Morphology Normal
[2022-05-23 11:03] LABS: C Diff PCR Negative (Negative)
[2022-05-23 11:13] LABS: Bilirubin Negative (Negative); Blood Small (Negative); Clarity Sl Cloudy (Clear); Glucose Negative (Negative); Ketones Trace mg/dL (Negative); Leukocyte Esterase Negative (Negative); Nitrite Negative (Negative); Specific Gravity >= 1.030 (1.005-1.025); Urobilinogen 0.2 EU/dL (Up TO 0.2); pH 6.5 (5-8)
[2022-05-23 11:23] LABS: Bacteria Few HPF (Negative); Crystals Few Amorphous HPF (Negative); Epithelial Cells Rare HPF (Negative); Mucus Moderate (Negative); WBC 0-2 HPF (0-5)
[2022-05-23 11:24] LABS: C & S Indicated? Yes
[2022-05-23 11:33] VITALS: BP 123/68; PULSE 88; RESP 18; O2SAT 96
== END 2022-05-23 11:34 | disposition home or self-care (01) ==
PROVIDERS: Emergency Provider Physician Assistant; PCP Nurse Practitioner Family
DX: R19.7 Diarrhea, unspecified (principal); D72.820 Lymphocytosis (symptomatic); E03.9 Hypothyroidism, unspecified; M81.0 Age-related osteoporosis without current pathological fracture
CPT/HCPCS: 36415; 80053; 87493; 87505; 99283; 81003; 81015; 85025; 87086; 99282

== ENCOUNTER → 2022-05-30 10:55 | Outpatient (BNVA) | payer MEDICARE, BC, SELFPAY | PROVIDERS: PCP Nurse Practitioner Family; Referring Provider Nurse Practitioner Family; Visit Provider Student in an Organized Health Care Education/Training Program | DX: M16.11 Unilateral primary osteoarthritis, right hip (principal); M16.12 Unilateral primary osteoarthritis, left hip | CPT/HCPCS: 99213 ==

== ENCOUNTER 2022-06-07 15:49 | Outpatient (REF) | payer MEDICARE, BC, SELFPAY ==
[2022-06-07 18:18] LABS: HCT 40.3 % (36.0-46.0); HGB 13.1 g/dL (11.2-15.7); MCH 27.5 pg (27.0-33.0); MCHC 32.5 % (32.0-36.0); MCV 85 fL (80-95); MPV 9.2 fL (8.0-11.0); Platelet Count 296 10^3/uL (130-400); RBC 4.76 10^6/uL (3.93-5.22); RDW 13.8 % (11.7-14.6); RDW-SD 42.8 fL; WBC 5.45 10^3/uL (4.4-10.8)
[2022-06-07 18:26] LABS: Anion Gap 8.3 mmol/L (3-11); BUN 17 mg/dL (7-18); CO2 28.7 mmol/L (21.0-32.0); CREATININE 1.1 mg/dL (0.55-1.02); Calcium 10.1 mg/dL (8.5-10.1); Chloride 104 mmol/L (98-107); Estimated GFR 51.11 (mL/min/1.73m2); Glucose 131 mg/dL (74-106); Potassium 3.4 mmol/L (3.5-5.1); Sodium 141 mmol/L (136-145)
== END 2022-06-07 15:50 | disposition home or self-care (01) ==
LOC: NCHCN 15:49
PROVIDERS: PCP Nurse Practitioner Family; Visit Provider Nurse Practitioner Family
DX: Z01.818 Encounter for other preprocedural examination (principal); M25.551 Pain in right hip; M25.552 Pain in left hip; M16.0 Bilateral primary osteoarthritis of hip
CPT/HCPCS: 80048; 85027

== ENCOUNTER 2022-06-11 10:20 | Outpatient (CLI) | payer MEDICARE, BC, SELFPAY ==
--- NOTE | 2022-06-11 10:12 | DI.RAD_ITS ---
Exam(s) XR PELVIS AP EXAM: XR PELVIS AP CLINICAL HISTORY: hip f/u. TECHNIQUE: 2D digital imaging was performed. COMPARISON: CR XR HIP PELVIS ADULT BL from 05/21/2021 FINDINGS: Single view: No evidence of pelvic nor hip fracture. Advanced degenerative changes are again noted in both hips, similar to the prior study. Advanced marcelo nt space narrowing and degenerative subarticular cysts as well as prominent osteophytes in the hips. 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 DATA REPOSITORY: RADIATION DOSE DELIVERED:
== END 2022-06-11 10:21 | disposition home or self-care (01) ==
LOC: DIORS 10:22
PROVIDERS: PCP Nurse Practitioner Family; Referring Provider Nurse Practitioner Family; Visit Provider Physician Assistant
DX: M16.11 Unilateral primary osteoarthritis, right hip (principal); M16.12 Unilateral primary osteoarthritis, left hip
CPT/HCPCS: 99214; 72170

== ENCOUNTER 2022-06-19 05:55 | Day surgery (SDC) | payer MEDICARE, BC, SELFPAY ==
[2022-06-19] VITALS (9 sets, daily range): BP systolic 108–135; BP diastolic 59–90; PULSE 50–60; RESP 13–17; TEMP 36.4–36.7; O2SAT 96–100; BMI 16.4
--- NOTE | 2022-06-19 06:33 | ANES.PREOP_ITS ---
General Info Date of Service Date Performed: 06/19/22 Height: 5 ft 6 in Weight: 46.1 kg Body Mass Index (BMI): 16.4 Surgical Procedure: Operation Date: 06/19/22 08:05 Proposed Procedure Side Surgeon p Hip Total Hip Anterior Right Yobani Hagen MD Meds Allergies and Home Medications Allergies Allergy/AdvReac Type Severity Reaction Status Date / Time No Known Allergies Allergy Verified 06/19/22 06:04 Home Medication Medication Instructions Recorded calcium citrate 315 mg 2 tab PO DAILY 05/21/21 calcium-vitamin D3 6.25 mcg (250 unit) tablet (Citracal + Vitamin D Maximum) denosumab 60 mg/mL subcutaneous 60 mg subcut [id number] 05/21/21 syringe (Prolia) levothyroxine 75 mcg tablet 75 mcg PO DAILY 05/21/21 (Levo-T) multivitamin 1 tab PO DAILY 05/21/21 celecoxib 200 mg capsule See Rx Instructions .Route 04/02/22 .COMPLEX #30 caps omeprazole 40 mg capsule,delayed 40 cap PO DAILY 05/23/22 release Current Visit Medications: Current Medications Generic Name Dose Route Start Last Admin Trade Name Freq PRN Reason Stop Dose Admin Acetaminophen 1,000 mg 06/19/22 06:00 Acetaminophen 500 Mg Tab PO 06/19/22 16:00 PREOP NIGEL Celecoxib 400 mg 06/19/22 06:00 Celecoxib 200 Mg Cap PO 06/19/22 16:00 PREOP NIGEL Tranexamic Acid 1,000 mg/ 60 mls @ 360 mls/hr 06/19/22 06:00 Sodium Chloride IV 06/19/22 16:00 PREOP NIGEL Ringer's Solution 1,000 mls @ 80 mls/hr 06/19/22 06:00 IV 07/18/22 23:59 INFUSION NIGEL Cefazolin Sodium/Dextrose 2 gm in 50 mls @ 100 mls/hr 06/19/22 06:00 Ancef Duplex IVPB 07/18/22 23:59 PREOP NIGEL IV Miscellaneous Supplies 1 each 06/19/22 06:00 Iv Access IV 07/18/22 23:59 DIRECTED NIGEL Sodium Chloride 0 ml 06/19/22 06:00 Normal Saline Flush 10 Ml Syr IV 07/18/22 23:59 PRN PRN Sodium Chloride 0 ml 06/19/22 06:00 Normal Saline 10 Ml Vial IJ 07/18/22 23:59 DIRECTED PRN Sterile Water 0 ml 06/19/22 06:00 Water,Injection,Sterile 10 Ml Vial IJ 07/18/22 23:59 DIRECTED PRN PFSH Active Problems Active Problems: Problem Status Onset Code Bilateral hip joint arthritis M16.0 Hypothyroidism E03.9 Osteoporosis M81.0 Right rotator cuff tendonitis M75.81 Diarrhea R19.7 Medical History Medical History GERD (gastroesophageal reflux disease) History of hyperparathyroidism Surgical History Surgical History History of colonoscopy History of hysterectomy History of surgery parathyroid and part of thyroid per patient. Tobacco Smoking/Tobacco Use Status: Never Alcohol Alcohol Intake: current Alcohol intake frequency: 0-2 drinks per day Alcohol type: wine Substance Use Substance use: Never Substance use type: does not use Vital Signs and Lab Results Vital Signs Most Recent Vital Signs in EMR: Most Recent Vital Signs Temp Pulse Resp BP Pulse Ox 36.7 C 60 16 135/74 99 06/19/22 06:07 06/19/22 06:07 06/19/22 06:07 06/19/22 06:07 06/19/22 06:07 Lab Results Blood Type / Crossmatch: No Data to Display Complete Blood Count: White Blood Count 5.45 10^3/uL (4.4-10.8) 06/07/22 13:10 Red Blood Count 4.76 10^6/uL (3.93-5.22) 06/07/22 13:10 Hemoglobin 13.1 g/dL (11.2-15.7) 06/07/22 13:10 Hematocrit 40.3 % (36.0-46.0) 06/07/22 13:10 Platelet Count 296 10^3/uL (130-400) 06/07/22 13:10 Complete Metabolic Panel: Sodium 141 mmol/L (136-145) 06/07/22 13:10 Potassium 3.4 mmol/L (3.5-5.1) L 06/07/22 13:10 Chloride 104 mmol/L (98-107) 06/07/22 13:10 Carbon Dioxide 28.7 mmol/L (21.0-32.0) 06/07/22 13:10 BUN 17 mg/dL (7-18) 06/07/22 13:10 Creatinine 1.1 mg/dL (0.55-1.02) H 06/07/22 13:10 Est GFR (CKD-EPI 2020) 51.11 (mL/min/1.73m2) 06/07/22 13:10 Calcium 10.1 mg/dL (8.5-10.1) 06/07/22 13:10 Albumin 4.0 g/dL (3.4-5.0) 05/23/22 09:30 Glucose 131 mg/dL (74-106) H 06/07/22 13:10 Liver Function Panel: Alanine Aminotransferase (ALT/SGPT) 40 U/L (14-59) 05/23/22 09: 30 Aspartate Amino Transf (AST/SGOT) 69 U/L (15-37) H 05/23/22 09: 30 Coagulation Panel: No Data to Display Cardiac Panel: No Data to Display Arterial Blood Gas: No Data to Display Venous Blood Gas: No Data to Display Pancreas Panel: No Data to Display Thyroid Panel: No Data to Display Infectious Disease: No Data to Display Blood Cultures: No Data to Display Toxicology Panel: No Data to Display Anesthesia Assessment and Plan Anesthesia History Personal History: No History of Anesthesia Complications Family History: No Family History of Anesthesia Complications Exercise Tolerance Exercise Tolerance: Metabolic Equivalents>4 Cardiac & Pulmonary Exam Cardiac Exam: Normal S1/S2 Heart Sounds Pulmonary Exam: Clear Bilateral Breath Sounds Implantable Cardiac Device Does patient have a Pacemaker or an ICD?: No Airway Exam Known Difficult Airway: No Mallampati Class: 3 Mouth Opening: Normal (> 3cm) Thyromental Distance: Greater than 3 cm Neck Range of Motion: Limited ROM Neck Circumference: Normal Teeth Condition: Normal Dentition ASA Classification ASA Score: ASA 2 Emergency Case?: No NPO Status NPO Status: NPO Clears >2 hours, Solids >8 hours Anesthesia Plan Resuscitation Status: Full Code Anesthesia Technique: Spinal Anesthesia Airway Planned: Natural Airway Monitors Used: Standard Monitors Preoperative Comments:: 81 yo female for ANDERSON. Sig PMHx: hypothyroid (on replacement), GERD (omeprazole, states well controlled), never smoker, occ EtOH.
[2022-06-19] MEDS: Celecoxib 200 MG CAP 400 MG PO (06:38)
[2022-06-19] MEDS: Acetaminophen 500 MG TAB 1000 MG PO (06:38)
[2022-06-19] MEDS: Lactated Ringers 1,000 ML 80 ML IV (06:38)
--- NOTE | 2022-06-19 06:45 | DI.RAD_ITS ---
Exam(s) XR HIP RT IN OR EXAM: XR HIP RT IN OR CLINICAL HISTORY: total hip. TECHNIQUE: 2D and realtime digital imaging was performed. COMPARISON: No exams were available for comparison FINDINGS: Fluoroscopy was provided in the OR for Dr. Hagen. Hard copy image shows placement of total hip pr osthesis which show satisfactory alignment. Please see procedure note for details. Fluoro time: 36.3seconds RADIATION DOSE DELIVERED: veronika Marx=2.46 mGy
--- NOTE | 2022-06-19 07:23 | W.PM.DSUDISC ---
Date of service: 06/19/22 Time of Service: 07:23 Discharge Plan Disposition Patient Disposition: Home Condition: Good Discharge Details Attending Provider: Yobani Hagen Primary Care Provider: Carolin Minor Home Meds and New Rx's Prescriptions: New celecoxib 200 mg capsule 200 mg PO BID Qty: 60 0RF aspirin 81 mg tablet,delayed release (DR/EC) 81 mg PO BID Qty: 60 0RF acetaminophen 500 mg tablet 1,000 mg PO TID Qty: 90 3RF oxycodone 5 mg tablet 5 mg PO Q4H MDD 6 tabs PRN (Reason: pain) Qty: 20 0RF Continued calcium citrate-vitamin D3 [Citracal + D Maximum] 315 mg-6.25 mcg (250 unit) tablet 2 tab PO DAILY multivitamin Tablet 1 tab PO DAILY Prolia 60 mg/mL syringe 60 mg subcut [id number] levothyroxine [Levo-T] 75 mcg tablet 75 mcg PO DAILY omeprazole 40 mg capsule,delayed release(DR/EC) 40 cap PO DAILY Label Comments: TAKE ONE CAPSULE BY MOUTH EVERY MORNING 30 MIN BEFORE MEAL Discontinued celecoxib 200 mg capsule See Rx Instructions .ROUTE .COMPLEX Qty: 30 6RF Dose Instruction: TAKE ONE CAPSULE BY MOUTH EVERY DAY FOR PAIN AND INFLAMMATION Rx Instructions: TAKE ONE CAPSULE BY MOUTH EVERY DAY FOR PAIN AND INFLAMMATION Discharge Instructions Additional Instructions: Total Hip Discharge Instructions Activity: The most important activity is to walk. You should try to take short walks a few times a day. You have no restrictions on movement or positioning, but do not try to force what you do. You will find some stiffness and weakness with hip flexion (lifting your knee). Do not try to strengthen this too early, continue to practice walking and stairs and this will come. - Outpatient physical therapy can be helpful to help return you to a normal gait and improve your flexibility and strength. This can start around 2 weeks. For some patients, it?s not necessary. Usually this is determined at the time of discharge or at the first post-operative visit. - You should wear the COOPER hose on both legs for 2 weeks. Dressing: Keep the surgical dressing in place for at least one week. After the first week it may be removed and replace with light gauze and tape or nothing. It may get wet after 3 days but avoid soaking the dressing. If it gets wet, just lightly pat dry. It is important to always keep some gauze between skin folds, especially when you are sitting. Spend some time with the wound exposed when you are lying flat as the incision does wrinkle onto itself. Medications: - You should take Tylenol and an anti-inflammatory Celebrex as your primary pain control medications. If the Celebrex is too expensive or not covered, please call the office for another alternative (Advil/Ibuprofen or Naproxen/Aleve). - You have been prescribed a stronger pain medication Oxycodone for breakthrough pain, take as needed as prescribed. - You have will continue omeprazole to help reduce stomach acid and reflux. - You will be taking Aspirin 81mg twice a day for DVT prevention unless instructed otherwise. - If you have constipation you should take Colace or Miralax (both [id number]). It takes most people 3-4 days to have a bowel movement. Follow-up: 2 weeks If you have any acute concerns or questions, please do not hesitate to contact the office at [phone]. You may contact Dr. Hagen with any questions after hours through the hospital at [phone] or on his cell phone at [phone]. Equipment/Supplies: Walker Activity:: Activity as Tolerated Shower/Bathe:: 72 hours Diet:: As Tolerated Discharge Orders Discharge Orders: Discharge Order (Routine); Ordered 06/19/22 Ordered By: Yobani Hagen DS: Diagnosis Discharge Diagnosis (1) Bilateral hip joint arthritis: Status: Acute
[2022-06-19] MEDS: ceFAZolin 2 GM/50 ML BAG IVPB (07:30)
[2022-06-19] MEDS: fentaNYL 100 MCG/2 ML VIAL IVP ×2 (09:18→09:28)
--- NOTE | 2022-06-19 09:18 | W.PM.OP ---
Date of service: 06/19/22 Time of Service: 09:00 Operative Note Operative Note DATE OF PROCEDURE: 06/19/22 PRE-OP DIAGNOSIS: Right Hip Arthritis POST-OP DIAGNOSIS: same PROCEDURE: Right Anterior Total Hip Arthroplasty with Intraoperative Navigation SURGEON: Yobani Hagen SEPTIC TANK SERVICER: Alli Hernadez ANESTHESIA TYPE: Spinal Refer to Anesthesia Record ESTIMATED BLOOD LOSS: 200 PATHOLOGY: none sent TOURNIQUET TIME: 0 COMPLICATIONS: None Patient was transported to: PACU Patient's condition: stable Implants: 1. Depuy [place] Acetabular Component, 52mm 2. Depuy Acetabular Liner, [id number] 3. Depuy Corail Standard 125 degree Collared Femoral Stem, Size 13 4. Depuy Altrx Ceramic Femoral Head, Size 36+1.5mm Indications: I have seen Aida in clinic for symptoms of hip arthritis, confirmed with radiographic findings. She has exhausted nonoperative methods and was having significant limitations in daily function and desired better function and less pain. I discussed the technical details of a hip replacement. I explained the risks of the procedure to include, but not limited to, bleeding, infection, pain, stiffness, fracture, damage to nerves and vessels, damage to muscles and tendons, loosening, instability, leg length inequality, need for repeat procedure, blood clot and cardiopulmonary demise. Despite these risks, Aida elected to proceed. Findings: There was significant signs of arthritis throughout the hip. Large osteophytes were present throughout. Procedure Description: Aida was greeted in the preoperative holding area where the correct side was identified and marked. The consent was reviewed with the patient and signed. The history and physical was updated. All questions were answered. She was taken back to the operating room. A spinal anesthestic was then administered. The feet were wrapped with cast padding and Coban and then placed into the boot liners and then into the boots. Care was taken to protect the skin and make sure the heels were fully down and the boots were stable. The patient was then positioned onto the HANA table. Both legs were held in a neutral position. SCDs were applied. The patient was then slid down onto a peroneal post. Prophylactic antibiotics in the form of Cefazolin were administered. 1g of Tranxemic Acid was given intravenously within 30 minutes of incision. The right leg was then prepped with Chloraprep and draped in a standard fashion. A second prep with Chloraprep was performed prior to placement of a shower-curtain type drape with Iodine impregnated skin protection. A timeout to confirm correct identity, side and site, procedure, allergies, anesthesia, and medical concerns was performed. An obliquely oriented incision was made starting lateral to the ASIS and running distal over the Tensor Fascia Farzana (TFL) muscle belly toward the fibular head, approximately 10cm. The skin and soft tissue was dissected sharply, through Antonio?s fascia, and to the fascia of the TFL. With the fascia and superior border of the IT band identified, the fascia was incised with a new knife just above any perforators from the IT band. The TFL muscle belly was bluntly dissected away from the fascia and moved laterally. The fat between TFL and rectus was identified to ensure the dissection was not within the TFL. Blunt dissection created space between abductors and the capsule and retractor was placed over the lateral femoral neck. The fibers of the rectus femoris tendon were identified and these were freed from the anterior capsule. A second cobra retractor was placed around the medial femoral neck. The TFL was further retracted laterally to show the deep fascia. Careful dissection through this layer identified three main crossing vessels of the lateral femoral circumflex. These were cauterized in multiple locations and then cut without any noticeable bleeding. The TFL was further released bluntly from the deep fascia to expose anterior hip capsule and fat The [place] orthopaedic retractor was then placed beneath the TFL and against sartorius and medial soft tissues to protect and retract the soft tissues. A T-capsulotomy was then performed starting at the superior lateral acetabulum and moving distally to the intertrochanteric ridge. These capsular flaps were tagged with a No. 1 Ethibond and elevated from within. The capsular flaps were released to the shoulder of the lateral neck and to the lesser trochanter to give excellent visualization of the proximal femur. A neck osteotomy was performed using an oscillating saw based on preoperative templates. This cut started in the shoulder and of the lateral neck and exited medially. The saw was at all times directed medially to avoid injury to the greater trochanter. Gross traction was applied to the leg and the osteotomy opened. The femoral head was removed with a corkscrew, making sure to protect the TFL on its exit. Traction was released after head removal. This was measured on the back table to determine the starting reamer size. Portions of the rectus obscuring visualization were minimally elevated off the superior acetabulum. An anterior retractor was placed over the anterior wall between capsule and labrum and attached to the Gripper retraction system. The femur was rotated to 90 degrees and medial capsule was fully released until the lesser trochanter was palpable and visible; the femur was returned to 30 degrees. A posterior retractor was placed similarly between capsule and labrum. This provided excellent visualization. The contents of the cotyloid fossa were removed with electrocautery and the labrum was removed with a knife. There was a notable floor osteophyte. There was significant chondromalacia of the superior acetabulum. Acetabular reaming began with a 48mm reamer. This first reaming was directed anterior to posterior and medial to get down to the true floor. This was inspected and reamed until the true floor was reached. The anterior retractor was then released and entry and exit was provided by traction on the capsular flaps. I then reamed sequentially up to a 52mm reamer where good fit was obtained. The larger reamers were oriented based on anatomical reference of the anterior and lateral saleem to ensure proper abduction and anteversion. Positioning and size was confirmed with the fluoroscopy. A 52mm Depuy [place] acetabular component was selected. The acetabulum was reamed around the periphery with the selected acetabular size to prevent a rim fit. The deep tissues were irrigated. The acetabular component was then impacted in a position of about 40-45 degrees of abduction and 15-20 degrees of anteversion, using the patient?s anatomy as the ultimate landmark. Fluoroscopy was used to confirm this. There was excellent roving frame tender of the acetabular component and the inserting handle was removed. The acetabular liner, Depuy [id number] polyethylene liner, was inserted and lined up with the tines of the acetabular component. There was no soft tissue interposition. The liner was then impacted into position and confirmed to be well-seated. A portion of the cj-articular cocktail was then injected around the acetabulum into the capsule and periosteum. This cocktail consisted of 123mg of Ropivacaine, 0.25mg of Epinephrine, 0.04mg of Clonidine, and 15mg of Ketorolac, diluted to 50cc. The leg was rotated to 120 degrees. Any remaining medial capsule was released until the lesser trochanter was easily palpable. A retractor was placed medially. The lateral capsule was further released into the shoulder to allow access to the greater trochanter. A Liang retractor was placed over the greater trochanter which allowed the trochanter to flip in front of the capsule for excellent exposure. The leg was brought down into maximal extension and 20 degrees of adduction while ensuring there was no impingement on the acetabulum. Any remnant capsule within the trochanter was released. Piriformis and obturator externis were identified and protected. There was excellent access to the proximal femur. The lateral neck remnant was removed with a rongeur. A blunt canal probe was used to identify the canal and trajectory for later broaching. A box osteotome initiated the broach course. A small curved rasp and a curved curette were used to work laterally. Broaching then began with a size 8 Corail broach. This was inserted manually around the trochanter and into the canal before mallet blows. The broach was seated to a few millimeters below the cut level based on the neck cut and the preoperative template. Sequential broaching was continued with the Pcsso pneumatic broaching device until a tight fit was obtained with good rotational control of the femur. A trial standard 125 degree neck was inserted along with a +5 trial head. The leg was brought out of extension and adduction and then reduced with traction and internal rotation. The leg was stable anteriorly in a position of 30 degrees of extension and 90 degrees of external rotation. Fluoroscopy was used to ensure there was no fracture and the stem was seated well. Leg lengths were checked with an AP pelvis and pelvic reference points. Trippeo navigation system was used to confirm appropriate positioning and leg length and offset. This slightly increased offset and leg length but would be even in both with a decrease to a 1.5 head. Once content with the desired offset and leg lengths, the leg was brought back into extension, external rotation and adduction. The periosteum and surrounding tissue was injected with remaining portion of the cj-articular cocktail. The proximal femur was irrigated as well as the deep tissues. The Depuy [place] standard 125 deg collared stem, size 13, was then manually inserted into the proximal femur making sure to control rotation. It was then malleted into position with light blows, giving breaks to allow bone expansion and decrease risk of fracture. The selected Depuy Altrx Ceramic Head, size 36+1.5mm, was then placed onto the clean and dry trunnion and secured with impaction onto the tapered fit. The leg was brought back out of extension and adduction and reduced with traction and internal rotation. Stability was confirmed with no shuck at 90 degrees of external rotation and 30 degrees of extension. No impingement through range of motion arc. Final x-ray images were obtained with fluoroscopy to confirm adequate positioning and no intraoperative fracture. The deep tissues were thoroughly irrigated with Surgiphor, betadine solution. This was allowed to sit in the wound for 3 minutes before being thoroughly irrigated out with normal saline. The capsule was then reapproximated with the previously placed Ethibond sutures. The TFL fascia was finally closed with a No. 2 Stratafix, barbed suture. Deep tissues were then reapproximated with 0 Vicryl and a running 2-0 Vicryl. The skin was closed with a running 4-0 Monocryl in a subcuticular fashion. This was reinforced with skin glue. A Mepilex silver dressing was applied. At the end of the case, all counts were correct. Aida was transferred to the hospital bed without difficulty and suffering no apparent complication. Aida has a good prognosis. Physical therapy will start today and without restrictions, weight-bearing as tolerated. Aspirin 81mg BID will be used for DVT prophylaxis.
--- NOTE | 2022-06-19 09:55 | W.ANESPOSTOP ---
Postoperative Evaluation Date, Time and Location Date Performed: 06/19/22 Time Performed: 09:55 Patient Location: Day Surgery Unit Vital Signs Most Recent Imported Vital Signs: Most Recent Vital Signs Temp Pulse Resp BP Pulse Ox 36.7 C 51 L 13 115/62 99 06/19/22 09:40 06/19/22 09:40 06/19/22 09:40 06/19/22 09:40 06/19/22 09:40 Pain Score Most Recent Pain Score: Most Recent Pain Score Pain Level 6 06/19/22 09:40 Assessment Mental Status: Awake (Alert & Oriented to Patient Baseline) Airway and Respiratory Function: Patent airway with normal (patient baseline) respiratory exam Cardiovascular Function: Hemodynamically Stable Hydration Status: Adequately Hydrated Nausea & Vomiting: No Nausea or Vomiting Pain: Pain is tolerable per patient Peripheral Nerve Block: Patient did not receive a nerve block
--- NOTE | 2022-06-19 10:32 | IN_ITS ---
Date of service: 06/19/22 Time of Service: 10:32 PT Notes Physical Therapy Day Surgery Initial Evaluation Date: 06/19/2022 Referring Doctor: SOCORRO Fair PT Orders: PT CONSULT: S/P Ortho Surgery Precautions: WBAT on R LE with AD. Patient Profile/Admitting Diagnosis: Aida is a 81-year-old female with degenerative joint disease of the right hip and is status post right anterior total hip arthroplasty on postoperative day 0. PMHX: All Active Problems? Diarrhea (Acute) Right rotator cuff tendonitis (Acute) Osteoporosis (Chronic) Hypothyroidism (Chronic) Bilateral hip joint arthritis (Acute) Bilateral hip injections under fluoroscopy: 05/31/2021 Medical History? History of hyperparathyroidism Social History/Home Situation: Lives with in a private home with 3 steps to enter with rails on B sides. Independent with all aspects of ADLs prior to admission. Equipment Owned/DME: Standard walker, 4WW Subjective: Reports 2/10 pain in the R hip at rest and with weight bearing. Denies headache, chest pain, and lightheadedness throughout session. States no falls in the past year. Objective: General Observation: Supine in bed. In NAD. Mepilex Ag over surgical incision. TEDS on b legs. [place]ocuff to R hip. Mental Status: Alert and oriented x 4 Pain: 2/10 pain in the R hip ROM: Right Lower Extremity: Hip flexion WFL. Hip abduction WFL. Knee flexion WFL. Ankle dorsiflexion WFL. Ankle plantarflexion WFL. Left Lower Extremity: Hip flexion WFL. Hip abduction WFL. Knee flexion WFL. Ankle dorsiflexion WFL. Ankle plantarflexion WFL. Strength: Right Lower Extremity: Hip flexors 4/5. Hip abductors 4/5. Knee flexors 5/5. Knee extensors 4/5. Ankle dorsiflexors 5/5. Ankle plantarflexors 5/5. Left Lower Extremity:Hip flexors 5/5. Hip abductors 5/5. Knee flexors 5/5. Knee extensors 5/5. Ankle dorsiflexors 5/5. Ankle plantarflexors 5/5. Sensation: Intact as to pain and light pressure in B LE Bed Mobility/Transfers: Supine to sit stand by assist Sit to stand stand by assist Stand to sit stand by assist Bed to chair stand by assist Gait: 150 feet of level surface ambulation using FWW with stand by assist with step- through gait pattern. No LOB. No SOB. Nor report of increased pain. Stairs: Up and down 6x 4-inch steps and 4 x 6-inch steps while holding onto B rails with step-to gait pattern requiring stand by assist with not report of increased pain. THERA EX: Gluteal sests x 5 in supine Quads sets x 5 in supine Heels slides x 5 in supine Ankle Pf/DF x 5 in supine Seated marrches x 5 in supine Bilateral heel raises in standing in supine Balance: Static Sitting: Normal Dynamic Sitting: Normal Static Standing: Fair Dynamic Standing: Fair Special Tests: Mobility Limitations Standardized Measure [facility] AM-PAC 6 clicks Basic Mobility Inpatient Short Form: Raw Score: 23 CMS Score: 11% deficit Informed Consent/Education: Patient instructed in purpose of PT consult. Packet containing ANDERSON exercise protocol has been given to patient. Education and training on initial set of exercises that can be done at home have been completed with patient. Assessment: Patient requires the use of a FWW for all mobility ADL performance to maximize independence and reduce fall risk. Patient presents with clinical signs and symptoms consistent with current/admitting diagnoses that have resulted to mobility limitations, gait instability, generalized weakness, and impairment of motor control as demonstrated by the following impairment level findings: 1. Decreased strength to R hip major muscle groups 2. Impaired standing balance 3. Limitation of joint range of motion in R hip Impairments are contributing to the following functional limitations: 1. Inability to safely ambulate without assistive device 2. Increase completion time for mobility ADL performance 3. Increased fall risk Patient is assessed as a 70203 moderate complexity based on the following: History: 81-year-old female with impairment level findings, functional limitations, and past medical history as indicated above Examination: Demonstrable impairment in strength, balance, and mobility level with underlying impairments and functional limitations as documented above Presentation: Evolving Decision Makin moderate complexity Goals: N/A. PT evaluation and 1-2 treatment sessions only for functional mobility training using recommended AD and for HEP instruction. Plan of Care/Treatment Plan: N/A. PT evaluation and 1-2 treatment session only for functional mobility training using recommended AD and for HEP instruction. DISCHARGE RECOMMENDATIONS: [] Home with no services [] [] Home with services [specify] [X] Home with outpatient PT. HOme when medically cleared by orthopedic surgeon. Recommend putpatient Pt services to optimize functional mobility outcomes and facilitate return to independent community ambulation without and assistive device. [] SNF for continued rehabilitation [] [] [facility] [] [] SNF versus LTC based on ability to participate and progress [] TREATMENT CODE/TIME: 82363 x 20 minutes, 50649 x 21 minutes beginning at 10:32 AM. Thank you for the opportunity to participate in the care of this patient. Destiny Peralta PT, DPT, CLT [facility] [place], [place]
== END 2022-06-19 11:32 | disposition home or self-care (01) ==
PROVIDERS: PCP Nurse Practitioner Family; Visit Provider Student in an Organized Health Care Education/Training Program
PROC: (CPT 27130; principal; 2022-06-19 07:45)
DX: M16.11 Unilateral primary osteoarthritis, right hip (principal); E03.9 Hypothyroidism, unspecified; M81.0 Age-related osteoporosis without current pathological fracture
CPT/HCPCS: 20985; 27130; C1776; 97162; 97530; 73501; J0690; J1100; J2370; J2405; J2704; J3010

== ENCOUNTER 2022-07-01 11:08 | Outpatient (CLI) | payer MEDICARE, BC, SELFPAY ==
--- NOTE | 2022-07-01 11:00 | DI.RAD_ITS ---
Exam(s) XR HIP RT COMPLETE AP PELVIS EXAM: XR HIP RT COMPLETE AP PELVIS CLINICAL HISTORY: 1st post op R TKA. TECHNIQUE: 2D digital imaging was performed. Two images were obtained. AP, lateral and oblique view s were obtained. COMPARISON: CR XR PELVIS AP from 06/11/2022 XA XR HIP RT IN OR from 06/19/2022 FINDINGS: BONES: There are stable post operative changes present. No fracture or dislocation. JOINTS: The orthopedic hardware is in good position. No evidence of hardware loosening. There are m arked degenerative changes again seen in the left hip with joint space narrowing and marginal osteoph ytes. SOFT TISSUE: Normal. IMPRESSION: Stable postoperative changes. DATA REPOSITORY: RADIATION DOSE DELIVERED:
== END 2022-07-01 11:09 | disposition home or self-care (01) ==
LOC: DIORS 11:08
PROVIDERS: PCP Nurse Practitioner Family; Referring Provider Nurse Practitioner Family; Visit Provider Student in an Organized Health Care Education/Training Program
DX: Z96.641 Presence of right artificial hip joint (principal); Z47.1 Aftercare following joint replacement surgery
CPT/HCPCS: 73502

== ENCOUNTER → 2022-07-29 10:43 | Outpatient (BNVA) | payer MEDICARE, BC, SELFPAY | PROVIDERS: PCP Nurse Practitioner Family; Referring Provider Nurse Practitioner Family; Visit Provider Student in an Organized Health Care Education/Training Program | DX: Z47.1 Aftercare following joint replacement surgery (principal); Z96.641 Presence of right artificial hip joint ==

== ENCOUNTER 2022-07-30 18:20 | Outpatient (REF) | payer MEDICARE, BC, SELFPAY ==
[2022-07-30 19:26] LABS: TSH (W/Ref FT4) 0.22 uIU/mL (0.36-3.74)
[2022-07-30 20:02] LABS: FREE T4 1.37 ng/dL (0.76-1.46)
== END 2022-07-30 18:21 | disposition home or self-care (01) ==
LOC: NCHCN 18:20
PROVIDERS: PCP Nurse Practitioner Family; Visit Provider Nurse Practitioner Family
DX: E03.9 Hypothyroidism, unspecified (principal)
CPT/HCPCS: 84439; 84443

== ENCOUNTER → 2022-09-09 10:13 | Outpatient (BNVA) | payer MEDICARE, BC, SELFPAY | PROVIDERS: PCP Nurse Practitioner Family; Referring Provider Nurse Practitioner Family; Visit Provider Student in an Organized Health Care Education/Training Program | DX: Z47.1 Aftercare following joint replacement surgery (principal); Z96.641 Presence of right artificial hip joint ==

== ENCOUNTER → 2022-11-18 14:17 | Outpatient (BNVA) | payer MEDICARE, BC, SELFPAY | PROVIDERS: PCP Physician Assistant; Referring Provider Physician Assistant | DX: M16.12 Unilateral primary osteoarthritis, left hip (principal); Z96.641 Presence of right artificial hip joint | CPT/HCPCS: 99213 ==

== ENCOUNTER 2023-01-16 03:56 | Outpatient (CLI) | payer MEDICARE, BC, SELFPAY ==
[2023-01-16 14:50] LABS: HCT 43.4 % (36.0-46.0); HGB 14.4 g/dL (11.2-15.7); MCH 28.2 pg (27.0-33.0); MCHC 33.2 % (32.0-36.0); MCV 85 fL (80-95); MPV 8.4 fL (8.0-11.0); Platelet Count 231 10^3/uL (130-400); RDW 14.6 % (11.7-14.6); RDW-SD 45.6 fL; WBC 5.15 10^3/uL (4.4-10.8)
[2023-01-16 15:24] LABS: Anion Gap 9.5 mmol/L (3-11); BUN 13 mg/dL (7-18); CO2 30.5 mmol/L (21.0-32.0); CREATININE 0.8 mg/dL (0.55-1.02); Calcium 9.5 mg/dL (8.5-10.1); Chloride 103 mmol/L (98-107); Estimated GFR 74.44 (mL/min/1.73m2); Glucose 109 mg/dL (74-106); Potassium 3.3 mmol/L (3.5-5.1); Sodium 143 mmol/L (136-145)
== END 2023-01-16 03:57 | disposition home or self-care (01) ==
LOC: LBO 03:56
PROVIDERS: PCP Physician Assistant; Visit Provider Student in an Organized Health Care Education/Training Program
DX: M16.12 Unilateral primary osteoarthritis, left hip (principal); Z01.818 Encounter for other preprocedural examination
CPT/HCPCS: 36415; 80048; 85027

== ENCOUNTER 2023-01-20 08:35 | Outpatient (REF) | payer MEDICARE, BC, SELFPAY ==
[2023-01-20 14:57] LABS: HCT 43.1 % (36.0-46.0); MCH 28.1 pg (27.0-33.0); MCHC 32.5 % (32.0-36.0); MCV 87 fL (80-95); MPV 8.9 fL (8.0-11.0); Platelet Count 266 10^3/uL (130-400); RBC 4.98 10^6/uL (3.93-5.22); RDW 14.5 % (11.7-14.6); WBC 3.63 10^3/uL (4.4-10.8)
[2023-01-20 15:44] LABS: Anion Gap 10.4 mmol/L (3-11); BUN 16 mg/dL (7-18); CO2 29.6 mmol/L (21.0-32.0); CREATININE 0.8 mg/dL (0.55-1.02); Calcium 9.3 mg/dL (8.5-10.1); Calculated LDL 144 mg/dL (<100); Chloride 104 mmol/L (98-107); Cholesterol 288 mg/dL (<200); Estimated GFR 74.44 (mL/min/1.73m2); Glucose 102 mg/dL (74-106); HDL Cholesterol 133 mg/dL (40-60); Potassium 4.2 mmol/L (3.5-5.1); Sodium 144 mmol/L (136-145); TSH 2.06 uIU/mL (0.36-3.74); Triglyceride 56 mg/dL (<150); Vitamin B12 440 pg/mL (193-986)
== END 2023-01-20 08:36 | disposition home or self-care (01) ==
LOC: NCHCN 08:35
PROVIDERS: PCP Physician Assistant; Visit Provider Physician Assistant
DX: E03.9 Hypothyroidism, unspecified (principal); R41.3 Other amnesia; K30 Functional dyspepsia; M81.0 Age-related osteoporosis without current pathological fracture; E78.89 Other lipoprotein metabolism disorders
CPT/HCPCS: 80048; 80061; 85027; 82607; 84443

== ENCOUNTER 2023-01-21 05:55 | Day surgery (SDC) | payer MEDICARE, BC, SELFPAY ==
[2023-01-21] VITALS (10 sets, daily range): BP systolic 128–168; BP diastolic 59–83; PULSE 56–63; RESP 11–20; TEMP 36.3–36.5; O2SAT 94–100; BMI 16.3
[2023-01-21] MEDS: Celecoxib 200 MG CAP 400 MG PO (06:11)
[2023-01-21] MEDS: Acetaminophen 500 MG TAB 1000 MG PO (06:12)
[2023-01-21] MEDS: Lactated Ringers 1,000 ML 80 ML IV (06:22)
--- NOTE | 2023-01-21 06:53 | W.ANESPRE ---
General Info Date of Service Date Performed: 01/21/23 Height: 5 ft 6 in Weight: 46 kg Body Mass Index (BMI): 16.3 Surgical Procedure: Operation Date: 01/21/23 07:50 Proposed Procedure Side Surgeon p Hip Total Hip Anterior Left Yobani Hagen MD Meds Allergies and Home Medications Allergies Allergy/AdvReac Type Severity Reaction Status Date / Time No Known Allergies Allergy Verified 01/21/23 06:31 Home Medication Medication Instructions Recorded calcium citrate 315 mg 2 tab PO DAILY 05/21/21 calcium-vitamin D3 6.25 mcg (250 unit) tablet (Citracal + Vitamin D Maximum) denosumab 60 mg/mL subcutaneous 60 mg subcut [id number] 05/21/21 syringe (Prolia) levothyroxine 75 mcg tablet 75 mcg PO DAILY 05/21/21 (Levo-T) multivitamin 1 tab PO DAILY 05/21/21 omeprazole 40 mg capsule,delayed 40 cap PO DAILY 05/23/22 release Current Visit Medications: Current Medications Generic Name Dose Route Start Last Admin Trade Name Lisa PRN Reason Stop Dose Admin Acetaminophen 1,000 mg 01/21/23 06:00 01/21/23 06:12 Acetaminophen 500 Mg Tab PO 01/21/23 16:00 1,000 mg PREOP NIGEL Administration Celecoxib 400 mg 01/21/23 06:00 01/21/23 06:11 Celecoxib 200 Mg Cap PO 01/21/23 16:00 400 mg PREOP NIGEL Administration Tranexamic Acid 1,000 mg/ 60 mls @ 360 mls/hr 01/21/23 06:00 Sodium Chloride IV 01/21/23 16:00 PREOP NIGEL Ringer's Solution 1,000 mls @ 80 mls/hr 01/21/23 06:00 01/21/23 06:22 IV 02/19/23 23:59 80 mls/hr INFUSION NIGEL Administration Cefazolin Sodium/Dextrose 2 gm in 50 mls @ 100 mls/hr 01/21/23 06:00 Ancef Duplex IVPB 01/21/23 16:00 PREOP NIGEL IV Miscellaneous Supplies 1 each 01/21/23 06:00 Iv Access IV 02/19/23 23:59 DIRECTED NIGEL Sodium Chloride 0 ml 01/21/23 06:00 Normal Saline Flush 10 Ml Syr IV 02/19/23 23:59 PRN PRN Sodium Chloride 0 ml 01/21/23 06:00 Normal Saline 10 Ml Vial IJ 02/19/23 23:59 DIRECTED PRN Sterile Water 0 ml 01/21/23 06:00 Water,Injection,Sterile 10 Ml Vial IJ 02/19/23 23:59 DIRECTED PRN PFSH Active Problems Active Problems: Problem Status Onset Code Primary osteoarthritis of left hip M16.12 History of right hip replacement 06/19/22 Z96.641 Hypothyroidism E03.9 Osteoporosis M81.0 Right rotator cuff tendonitis M75.81 Medical History Medical History GERD (gastroesophageal reflux disease) History of hyperparathyroidism Surgical History Surgical History History of colonoscopy History of hysterectomy History of surgery parathyroid and part of thyroid per patient. Tobacco Smoking/Tobacco Use Status: Never Alcohol Alcohol Intake: current Alcohol intake frequency: 0-2 drinks per day Alcohol type: wine Substance Use Substance use: Never Substance use type: does not use Vital Signs and Lab Results Vital Signs Most Recent Vital Signs in EMR: Most Recent Vital Signs Temp Pulse Resp BP Pulse Ox 36.4 C L 60 16 128/82 99 01/21/23 06:23 01/21/23 06:23 01/21/23 06:23 01/21/23 06:23 01/21/23 06:23 Lab Results Blood Type / Crossmatch: No Data to Display Complete Blood Count: White Blood Count 3.63 10^3/uL (4.4-10.8) L 01/20/23 07:50 Red Blood Count 4.98 10^6/uL (3.93-5.22) 01/20/23 07:50 Hemoglobin 14.0 g/dL (11.2-15.7) 01/20/23 07:50 Hematocrit 43.1 % (36.0-46.0) 01/20/23 07:50 Platelet Count 266 10^3/uL (130-400) 01/20/23 07:50 Complete Metabolic Panel: Sodium 144 mmol/L (136-145) 01/20/23 07:50 Potassium 4.2 mmol/L (3.5-5.1) 01/20/23 07:50 Chloride 104 mmol/L (98-107) 01/20/23 07:50 Carbon Dioxide 29.6 mmol/L (21.0-32.0) 01/20/23 07:50 BUN 16 mg/dL (7-18) 01/20/23 07:50 Creatinine 0.8 mg/dL (0.55-1.02) 01/20/23 07:50 Est GFR (CKD-EPI 2020) 74.44 (mL/min/1.73m2) 01/20/23 07:50 Calcium 9.3 mg/dL (8.5-10.1) 01/20/23 07:50 Glucose 102 mg/dL (74-106) 01/20/23 07:50 Liver Function Panel: No Data to Display Coagulation Panel: No Data to Display Cardiac Panel: No Data to Display Arterial Blood Gas: No Data to Display Venous Blood Gas: No Data to Display Pancreas Panel: No Data to Display Thyroid Panel: Thyroid Stimulating Hormone (TSH) 2.06 uIU/mL (0.36-3.74) 01/20/23 07:50 Infectious Disease: No Data to Display Blood Cultures: No Data to Display Toxicology Panel: No Data to Display Anesthesia Assessment and Plan Anesthesia History Personal History: No History of Anesthesia Complications Family History: No Family History of Anesthesia Complications Exercise Tolerance Exercise Tolerance: Metabolic Equivalents>4 Pertinent Negatives Pertinent Negatives: No Symptoms of GERD, No Major Cardiovascular Symptoms or Complaints, No Major Pulmonary Symptoms or Complaints and No History of CVA/TIA Cardiac & Pulmonary Exam Cardiac Exam: Normal S1/S2 Heart Sounds Pulmonary Exam: Clear Bilateral Breath Sounds Implantable Cardiac Device Does patient have a Pacemaker or an ICD?: No Airway Exam Known Difficult Airway: No Mallampati Class: 3 Mouth Opening: Normal (> 3cm) Thyromental Distance: Greater than 3 cm Neck Range of Motion: Limited ROM Neck Circumference: Normal Teeth Condition: Normal Dentition ASA Classification ASA Score: ASA 2 Emergency Case?: No NPO Status NPO Status: NPO Clears >2 hours, Solids >8 hours Anesthesia Plan Resuscitation Status: Full Code Anesthesia Technique: Spinal Anesthesia Airway Planned: Natural Airway Monitors Used: Standard Monitors
[2023-01-21] MEDS: ceFAZolin 2 GM/50 ML BAG IVPB (07:30)
--- NOTE | 2023-01-21 08:35 | DI.RAD_ITS ---
Exam(s) XR HIP LT IN OR EXAM: XR HIP LT IN OR CLINICAL HISTORY: Primary osteoarthritis of left hip TECHNIQUE: 2D and realtime digital imaging was performed. CONTRAST MATERIAL: Refer to procedure report. COMPARISON: CR XR HIP RT COMPLETE AP PELVIS from 07/01/2022 FINDINGS: Fluoroscopy was provided for Dr. Hagen during the performance of a left total hip replacement. P lease refer to the procedure report for complete details. Ka,r=2.4 mGy IMPRESSION: RADIATION DOSE DELIVERED:
--- NOTE | 2023-01-21 08:44 | W.PM.OP ---
Date of service: 01/21/23 Time of Service: 08:44 Operative Note Operative Note DATE OF PROCEDURE: 01/21/23 PRE-OP DIAGNOSIS: Left Hip Osteoarthritis POST-OP DIAGNOSIS: same PROCEDURE: Left Anterior Total Hip Arthroplasty with Intraoperative Navigation SURGEON: Yobani Hagen TRACK HOE OPERATOR: Corin Raya ANESTHESIA TYPE: Spinal Refer to Anesthesia Record ESTIMATED BLOOD LOSS: 100 PATHOLOGY: none sent TOURNIQUET TIME: 0 COMPLICATIONS: None Patient was transported to: PACU Patient's condition: stable Implants: 1. Depuy [place] Acetabular Component, 52mm 2. Depuy Acetabular Liner, [id number] 3. Depuy Corail Standard 125 degree Collared Femoral Stem, Size 12 4. Depuy Altrx Ceramic Femoral Head, Size 36+5mm Indications: I have seen Aida in clinic for symptoms of hip arthritis, confirmed with radiographic findings. She has exhausted nonoperative methods and was having significant limitations in daily function and desired better function and less pain. I discussed the technical details of a hip replacement. I explained the risks of the procedure to include, but not limited to, bleeding, infection, pain, stiffness, fracture, damage to nerves and vessels, damage to muscles and tendons, loosening, instability, leg length inequality, need for repeat procedure, blood clot and cardiopulmonary demise. Despite these risks, Aida elected to proceed. Findings: There was significant signs of arthritis throughout the hip. Large osteophytes throughout. Procedure Description: Aida was greeted in the preoperative holding area where the correct side was identified and marked. The consent was reviewed with the patient and signed. The history and physical was updated. All questions were answered. She was taken back to the operating room. A spinal anesthestic was then administered. The feet were wrapped with cast padding and Coban and then placed into the boot liners and then into the boots. Care was taken to protect the skin and make sure the heels were fully down and the boots were stable. The patient was then positioned onto the HANA table. Both legs were held in a neutral position. SCDs were applied. The patient was then slid down onto a peroneal post. Prophylactic antibiotics in the form of Cefazolin were administered. 1g of Tranxemic Acid was given intravenously within 30 minutes of incision. The left leg was then prepped with Chloraprep and draped in a standard fashion. A second prep with Chloraprep was performed prior to placement of a shower-curtain type drape with Iodine impregnated skin protection. A timeout to confirm correct identity, side and site, procedure, allergies, anesthesia, and medical concerns was performed. An obliquely oriented incision was made starting lateral to the ASIS and running distal over the Tensor Fascia Farzana (TFL) muscle belly toward the fibular head, approximately 10cm. The skin and soft tissue was dissected sharply, through Antonio?s fascia, and to the fascia of the TFL. With the fascia and superior border of the IT band identified, the fascia was incised with a new knife just above any perforators from the IT band. The TFL muscle belly was bluntly dissected away from the fascia and moved laterally. The fat between TFL and rectus was identified to ensure the dissection was not within the TFL. Blunt dissection created space between abductors and the capsule and retractor was placed over the lateral femoral neck. The fibers of the rectus femoris tendon were identified and these were freed from the anterior capsule. A second cobra retractor was placed around the medial femoral neck. The TFL was further retracted laterally to show the deep fascia. Careful dissection through this layer identified three main crossing vessels of the lateral femoral circumflex. These were cauterized in multiple locations and then cut without any noticeable bleeding. The TFL was further released bluntly from the deep fascia to expose anterior hip capsule and fat The [place] orthopaedic retractor was then placed beneath the TFL and against sartorius and medial soft tissues to protect and retract the soft tissues. A T-capsulotomy was then performed starting at the superior lateral acetabulum and moving distally to the intertrochanteric ridge. These capsular flaps were tagged with a No. 1 Ethibond and elevated from within. The capsular flaps were released to the shoulder of the lateral neck and to the lesser trochanter to give excellent visualization of the proximal femur. A neck osteotomy was performed using an oscillating saw based on preoperative templates. This cut started in the shoulder and of the lateral neck and exited medially. The saw was at all times directed medially to avoid injury to the greater trochanter. Gross traction was applied to the leg and the osteotomy opened. The femoral head was removed with a corkscrew, making sure to protect the TFL on its exit. Traction was released after head removal. This was measured on the back table to determine the starting reamer size. Portions of the rectus obscuring visualization were minimally elevated off the superior acetabulum. An anterior retractor was placed over the anterior wall between capsule and labrum and attached to the Gripper retraction system. The femur was rotated to 90 degrees and medial capsule was fully released until the lesser trochanter was palpable and visible; the femur was returned to 30 degrees. A posterior retractor was placed similarly between capsule and labrum. This provided excellent visualization. The contents of the cotyloid fossa were removed with electrocautery and the labrum was removed with a knife. There was a notable floor osteophyte. There was significant chondromalacia of the superior acetabulum. Acetabular reaming began with a 48mm reamer. This first reaming was directed anterior to posterior and medial to get down to the true floor. This was inspected and reamed until the true floor was reached. The anterior retractor was then released and entry and exit was provided by traction on the capsular flaps. I then reamed sequentially up to a 52mm reamer where good fit was obtained. The larger reamers were oriented based on anatomical reference of the anterior and lateral saleem to ensure proper abduction and anteversion. Positioning and size was confirmed with the fluoroscopy. A 52mm Depuy [place] acetabular component was selected. The acetabulum was reamed around the periphery with the selected acetabular size to prevent a rim fit. The deep tissues were irrigated. The acetabular component was then impacted in a position of about 40-45 degrees of abduction and 15-20 degrees of anteversion, using the patient?s anatomy as the ultimate landmark. Fluoroscopy was used to confirm this. There was excellent department administrator of the acetabular component and the inserting handle was removed. The acetabular liner, Depuy [id number] polyethylene liner, was inserted and lined up with the tines of the acetabular component. There was no soft tissue interposition. The liner was then impacted into position and confirmed to be well-seated. A portion of the cj-articular cocktail was then injected around the acetabulum into the capsule and periosteum. This cocktail consisted of 123mg of Ropivacaine, 0.25mg of Epinephrine, 0.04mg of Clonidine, and 15mg of Ketorolac, diluted to 50cc. The leg was rotated to 120 degrees. Any remaining medial capsule was released until the lesser trochanter was easily palpable. A retractor was placed medially. The lateral capsule was further released into the shoulder to allow access to the greater trochanter. A Liang retractor was placed over the greater trochanter which allowed the trochanter to flip in front of the capsule for excellent exposure. The leg was brought down into maximal extension and 20 degrees of adduction while ensuring there was no impingement on the acetabulum. Any remnant capsule within the trochanter was released. Piriformis and obturator externis were identified and protected. There was excellent access to the proximal femur. The lateral neck remnant was removed with a rongeur. A blunt canal probe was used to identify the canal and trajectory for later broaching. A box osteotome initiated the broach course. A small curved rasp and a curved curette were used to work laterally. Broaching then began with a size 8 Corail broach. This was inserted manually around the trochanter and into the canal before mallet blows. The broach was seated to a few millimeters below the cut level based on the neck cut and the preoperative template. Sequential broaching was continued with the [employer] pneumatic broaching device until a tight fit was obtained with good rotational control of the femur. A trial standard 125 degree neck was inserted along with a +5 trial head. The leg was brought out of extension and adduction and then reduced with traction and internal rotation. The leg was stable anteriorly in a position of 30 degrees of extension and 90 degrees of external rotation. Fluoroscopy was used to ensure there was no fracture and the stem was seated well. Leg lengths were checked with an AP pelvis and pelvic reference points. Int[employer] navigation system was used to confirm appropriate positioning and leg length and offset. Once content with the desired offset and leg lengths, the leg was brought back into extension, external rotation and adduction. The periosteum and surrounding tissue was injected with remaining portion of the cj-articular cocktail. The proximal femur was irrigated as well as the deep tissues. The Depuy Corail standard 125 degree collared stem, size 12, was then manually inserted into the proximal femur making sure to control rotation. It was then malleted into position with light blows, giving breaks to allow bone expansion and decrease risk of fracture. The selected Depuy Altrx Ceramic Head, size 36+5mm, was then placed onto the clean and dry trunnion and secured with impaction onto the tapered fit. The leg was brought back out of extension and adduction and reduced with traction and internal rotation. Stability was confirmed with no shuck at 90 degrees of external rotation and 30 degrees of extension. No impingement through range of motion arc. Final x-ray images were obtained with fluoroscopy to confirm adequate positioning and no intraoperative fracture. The deep tissues were thoroughly irrigated with Surgiphor, betadine solution. This was allowed to sit in the wound for 3 minutes before being thoroughly irrigated out with normal saline. The capsule was then reapproximated with the previously placed Ethibond sutures. The TFL fascia was finally closed with a No. 2 Stratafix, barbed suture. Deep tissues were then reapproximated with 0 Vicryl and a running 2-0 Vicryl. The skin was closed with a running 4-0 Monocryl in a subcuticular fashion. This was reinforced with skin glue. A Mepilex silver dressing was applied. At the end of the case, all counts were correct. Aida was transferred to the hospital bed without difficulty and suffering no apparent complication. Aida has a good prognosis. Physical therapy will start today and without restrictions, weight-bearing as tolerated. Aspirin 81mg BID will be used for DVT prophylaxis.
[2023-01-21] MEDS: fentaNYL 100 MCG/2 ML VIAL IVP ×2 (09:23→09:40)
[2023-01-21] MEDS: oxyCODONE 5 MG TAB PO (10:22)
--- NOTE | 2023-01-21 11:33 | IN_ITS ---
Date of service: 01/21/23 Time of Service: 11:15 PT Notes Visit Reasons: Left hip DJD Physical Therapy Day Surgery Initial Evaluation Date: 01/21/2023 Referring Doctor: Corin Raya MD PT Orders: PT CONSULT: S/P ortho Surgery Precautions: WBAT on the R LE with AD. Patient Profile/Admitting Diagnosis: Aida is an 82-year-old female with degenerative joint disease of the left hip and is status post left total hip arthroplasty on postoperative day 0. PMHX: Medical History? GERD (gastroesophageal reflux disease) History of hyperparathyroidism Surgical History? History of colonoscopy History of hysterectomy History of surgery parathyroid and part of thyroid per patient Social History/Home Situation: Lives with who has dementia and Parkinson's disease. Patient is 's caregiver. Independent with all aspects of ADLs prior to surgery. Daughter Sherin lives close by and will be able to provide needed assistance. Equipment Owned/DME: [facility] Subjective: 2/10 pain on the right hip at rest and with weight bearing. Objective: General Observation: Supine in bed. Mepilex Ag over surgical incision. TEDS to be legs. Cold pack to left hip. Mental Status: Alert and oriented x4 Pain: above ROM: Right Lower Extremity: Hip flexion WFL. Hip abduction WFL. Knee flexion WFL. Ankle dorsiflexion WFL. Ankle plantarflexion WFL. Left Lower Extremity: Hip flexion WFL. Hip abduction WFL. Knee flexion WFL. Ankle dorsiflexion WFL. Ankle plantarflexion WFL. Strength: Right Lower Extremity: Hip flexors 5/5. Hip abductors 5/5. Knee flexors 5/5. Knee extensors 5/5. Ankle dorsiflexors 5/5. Ankle plantarflexors 5/5. Left Lower Extremity:Hip flexors 4/5. Hip abductors 4/5. Knee flexors 5/5. Knee extensors 4/5. Ankle dorsiflexors 5/5. Ankle plantarflexors 5/5. Sensation: Intact as to pain and light pressure in bilateral lower extremities Bed Mobility/Transfers: Supine to sit independent Sit to stand supervision Stand to sit supervision Bed to chair supervision Gait: 150 feet of ICU hallway ambulation using front wheeled walker with step through gait pattern with supervision assist only. Stairs: Ascended and descended 6 x 4 inch steps and 4 x 6 inch steps while holding onto bilateral rails with step to gait pattern requiring supervision. Balance: Static Sitting: Normal Dynamic Sitting: Normal Static Standing: Fair Dynamic Standing: Fair Special Tests: Mobility Limitations Standardized Measure [facility] AM-PAC 6 clicks Basic Mobility Inpatient Short Form: Raw Score: 24 CMS Score: 0% deficit Informed Consent/Education: Patient instructed in purpose of PT consult. Packet containing ANDERSON exercise protocol has been given to patient. Education and training on initial set of exercises that can be done at home have been completed with patient. Access Code: [email or web address] URL: [email or web address] Date: 01/21/2023 Prepared by: Destiny Peralta Exercises - Gluteal Sets - 1 x daily - 7 x weekly - 1 sets - 10 reps - 5 hold - Supine Heel Slide - 1 x daily - 7 x weekly - 1 sets - 10 reps - 5 hold - Supine Ankle Pumps - 1 x daily - 7 x weekly - 1 sets - 10 reps - 5 hold - Seated March - 1 x daily - 7 x weekly - 1 sets - 10 reps - 5 hold - Seated Long Arc Quad - 1 x daily - 7 x weekly - 1 sets - 10 reps - 5 hold Assessment: Patient requires the use of a front wheel walker to maximize independence and reduce fall risk. Patient presents with clinical signs and symptoms consistent with current/admitting diagnoses that have resulted to mobility limitations, gait instability, generalized weakness, and impairment of motor control as demonstrated by the following impairment level findings: 1. Decreased strength to l left hip major muscle groups 2. Impaired standing balance Impairments are contributing to the following functional limitations: 1. Inability to safely ambulate without assistive device 2. Increase completion time for mobility ADL performance 3. Increased fall risk Patient is assessed as a 81017 moderate complexity based on the following: History: 82-year-old female with impairment level findings, functional limitations, and past medical history as indicated above Examination: Demonstrable impairment in strength, balance, and mobility level with underlying impairments and functional limitations as documented above Presentation: Evolving Decision Makin moderate complexity Goals: N/A. PT evaluation and 1-2 treatment sessions only for functional mobility training using recommended AD and for HEP instruction. Plan of Care/Treatment Plan: N/A. PT evaluation and 1-2 treatment session only for functional mobility training using recommended AD and for HEP instruction. DISCHARGE RECOMMENDATIONS: Home when medically cleared by orthopedic surgeon. May benefit from skilled physical therapy services according to orthopedic surgeon's timeline recommendations. Patient will be educated and trained on home exercise program per TKA exercise protocol in preparation for outpatient physical therapy services. TREATMENT CODE/TIME: [id number] x 17 minutes beginning at 11:15 AM. Thank you for the opportunity to participate in the care of this patient. Destiny Peralta PT, DPT, CLT [facility] [place], [place]
--- NOTE | 2023-01-21 11:47 | W.PM.DS.N ---
Date of service: 01/21/23 Time of Service: 11:48 DS: Diagnosis Discharge Diagnosis (1) Primary osteoarthritis of left hip: Status: Acute Discharge Plan Disposition Patient Disposition: Home Condition: Good Discharge Details Reason For Visit: Left hip DJD Attending Provider: Yobani Hagen Primary Care Provider: Munir Robin Home Meds and New Rx's Prescriptions: New celecoxib [Celebrex] 200 mg capsule 200 mg PO BID PRNQty: 60 0RF Rx Instructions: Take one tablet twice daily for pain and inflammation aspirin 81 mg tablet,delayed release (DR/EC) 81 mg PO BID 30 Days Qty: 60 0RF acetaminophen 500 mg tablet 1,000 mg PO Q8H PRN Qty: 90 0RF Rx Instructions: Take two tablets up to every 8 hours as needed for pain dexamethasone 4 mg tablet 4 mg PO DAILY Qty: 2 0RF Rx Instructions: Take one tablet once daily for two days docusate sodium [Colace] 100 mg capsule 100 mg PO BID Qty: 30 0RF oxycodone 5 mg tablet 5 mg PO Q6H PRNQty: 12 0RF Rx Instructions: Take one tablet up to every 6 hours as needed for severe postoperative pain Continued calcium citrate-vitamin D3 [Citracal + D Maximum] 315 mg-6.25 mcg (250 unit) tablet 2 tab PO DAILY multivitamin Tablet 1 tab PO DAILY Prolia 60 mg/mL syringe 60 mg subcut [id number] Patient Comments: 01/20/23 Pt thinks she last got injection in 09/2022 but not certain levothyroxine [Levo-T] 75 mcg tablet 75 mcg PO DAILY omeprazole 40 mg capsule,delayed release(DR/EC) 40 cap PO DAILY Patient Comments: TAKE ONE CAPSULE BY MOUTH EVERY MORNING 30 MIN BEFORE MEAL Discharge Instructions Additional Instructions: Total Hip Discharge Instructions Activity: The most important activity is to walk. You should try to take short walks a few times a day. You have no restrictions on movement or positioning, but do not try to force what you do. You will find some stiffness and weakness with hip flexion (lifting your knee). Do not try to strengthen this too early, continue to practice walking and stairs and this will come. - Outpatient physical therapy can be helpful to help return you to a normal gait and improve your flexibility and strength. This can start around 2 weeks. For some patients, it?s not necessary. Usually this is determined at the time of discharge or at the first post-operative visit. - You should wear the COOPER hose on both legs for 2 weeks. Dressing: Keep the surgical dressing in place for at least one week. After the first week it may be removed and replace with light gauze and tape or nothing. It may get wet after 3 days but avoid soaking the dressing. If it gets wet, just lightly pat dry. It is important to always keep some gauze between skin folds, especially when you are sitting. Spend some time with the wound exposed when you are lying flat as the incision does wrinkle onto itself. Medications: - You should take Tylenol and an anti-inflammatory Celebrex as your primary pain control medications. If the Celebrex is too expensive or not covered, please call the office for another alternative (Advil/Ibuprofen or Naproxen/Aleve). - You have been prescribed a stronger pain medication Oxycodone for breakthrough pain, take as needed as prescribed. - You take a stomach acid reduction agent Omeprazole at baseline - continue with this medication to help reduce stomach acid and reflux. - You have also been prescribed Decadron to help with post-operative nausea and pain. You will take this for two days starting tomorrow. - You will be taking Aspirin 81mg twice a day for DVT prevention unless instructed otherwise. - If you have constipation you should take Colace (which has been prescribed) or Miralax (which is available [id number]). It takes most people 3-4 days to have a bowel movement. Follow-up: 2 weeks If you have any acute concerns or questions, please do not hesitate to contact the office at [phone]. You may contact Dr. Hagen with any questions after hours through the hospital at [phone] or on his cell phone at [phone]. Stand Alone Forms: Anesthesia Discharge Inst., Patys.Nerve Block Instructions, Audrey Soares ([facility]) Referrals: Yobani Hagen MD [ [facility] STAFF PHYSICIAN] - Equipment/Supplies: Walker Activity:: Elevate Remove Dressings/Wound Care:: Do Not Remove Shower/Bathe:: Cover Diet:: As Tolerated Discharge Orders Discharge Orders: Discharge Order (Routine); Ordered 08/08/23 Ordered By: Yobani Hagen DS: Summary Time Spent with Patient providing and/or coordinating discharge services: Less than 30 minutes Status at Discharge Functional status at discharge: uses cane/walker Overall status at discharge: patient is progressing back to baseline Mental Status: mental status grossly normal Speech and Movement: speech and movement normal Mood: congruent mood Affect: normal affect Exam Psych Mental Status: mental status grossly normal Speech and Movement: speech and movement normal Mood: congruent mood Affect: normal affect DS: Data Vitals/I&O Vitals and I&O: Vital Signs Temperature 97.5 F L 01/21/23 06:23 Pulse 60 01/21/23 06:23 Pulse Rhythm Regular 01/21/23 06:23 Respiratory Rate 16 01/21/23 06:23 Respiratory Depth Normal 01/21/23 06:23 Blood Pressure 128/82 01/21/23 06:23 Pulse Oximetry 99 01/21/23 06:23 Oxygen Delivery Method Room Air 01/21/23 06:23 Oxygen Flow Rate 0 01/21/23 06:23 Pain Level 2 01/21/23 06:23 Intake & Output 01/20/23 01/20/23 01/21/23 11:59 23:59 11:59 Output Total Balance - Weight 102 lb 15.999 oz 101 lb 6.602 oz Output: Urine Other: Urine Color Yellow PFSH All Active Problems Primary osteoarthritis of left hip (Acute) History of right hip replacement (Acute 06/19/22) Hypothyroidism (Chronic) Osteoporosis (Chronic) Right rotator cuff tendonitis (Acute) Medical History GERD (gastroesophageal reflux disease) History of hyperparathyroidism Surgical History History of colonoscopy History of hysterectomy History of surgery parathyroid and part of thyroid per patient. Social History Smoking/Tobacco Use Status: Never Smoking risk assessment performed?: Yes Alcohol Intake: current Alcohol Intake frequency: 0-2 drinks per day Alcohol type: wine Drug use: Never Substance use type: does not use Housing: house Current gender identity: female Do you feel safe at home: Yes Do you feel safe in your relationship?: Yes Additional Social history: Primary caregiver for . Daughter coming DOS and after if needed. Time Spent with Patient Time Spent with Patient: <45 minutes Time was spent: preparing to see the patient(eg.review tests), ordering medications,tests, procedures, indepentently interpreting results and counseling the patient
--- NOTE | 2023-01-21 12:02 | W.ANESPOSTOP ---
Postoperative Evaluation Date, Time and Location Date Performed: 01/21/23 Time Performed: 11:51 Patient Location: Day Surgery Unit Vital Signs Most Recent Imported Vital Signs: Most Recent Vital Signs Temp Pulse Resp BP Pulse Ox 36.4 C L 63 16 130/61 100 01/21/23 10:45 01/21/23 10:45 01/21/23 10:45 01/21/23 10:45 01/21/23 10:45 Pain Score Most Recent Pain Score: Most Recent Pain Score Pain Level 3 01/21/23 10:45 Assessment Mental Status: Awake (Alert & Oriented to Patient Baseline) Airway and Respiratory Function: Patent airway with normal (patient baseline) respiratory exam Cardiovascular Function: Hemodynamically Stable Hydration Status: Adequately Hydrated Nausea & Vomiting: No Nausea or Vomiting Pain: Pain is tolerable per patient Peripheral Nerve Block: Patient did not receive a nerve block
== END 2023-01-21 11:55 | disposition home or self-care (01) ==
PROVIDERS: PCP Physician Assistant; Visit Provider Student in an Organized Health Care Education/Training Program
PROC: (CPT 27130; principal; 2023-01-21 07:30)
DX: M16.12 Unilateral primary osteoarthritis, left hip (principal); K21.9 Gastro-esophageal reflux disease without esophagitis; M81.0 Age-related osteoporosis without current pathological fracture; Z96.641 Presence of right artificial hip joint
CPT/HCPCS: 20985; 27130; C1776; 97162; 73501; J0690; J1100; J2250; J2405; J3010

== ENCOUNTER 2023-02-03 13:03 | Outpatient (CLI) | payer MEDICARE, BC, SELFPAY ==
--- NOTE | 2023-02-03 12:45 | DI.RAD_ITS ---
Exam(s) XR HIP LT COMPLETE AP PELVIS EXAM: XR HIP LT COMPLETE AP PELVIS CLINICAL HISTORY: s/p left ANDERSON. TECHNIQUE: 2D digital imaging was performed. Images were obtained. AP, lateral and oblique views w ere obtained. COMPARISON: CR XR HIP RT COMPLETE AP PELVIS from 07/01/2022 XA XR HIP LT IN OR from 01/21/2023 FINDINGS: BONES: There are stable post operative changes present. No fracture or dislocation. JOINTS: The orthopedic hardware is in good position. No evidence of hardware loosening. SOFT TISSUE: Surgical clips are seen in the right pelvis. IMPRESSION: Stable postoperative changes. DATA REPOSITORY: RADIATION DOSE DELIVERED:
== END 2023-02-03 13:04 | disposition home or self-care (01) ==
LOC: DIORS 13:03
PROVIDERS: PCP Physician Assistant; Referring Provider Physician Assistant; Visit Provider Student in an Organized Health Care Education/Training Program
DX: Z96.642 Presence of left artificial hip joint (principal); Z47.1 Aftercare following joint replacement surgery
CPT/HCPCS: 73502

== ENCOUNTER → 2023-03-03 12:59 | Outpatient (BNVA) | payer MEDICARE, BC, SELFPAY | PROVIDERS: PCP Physician Assistant; Referring Provider Physician Assistant | DX: Z47.1 Aftercare following joint replacement surgery (principal); Z96.642 Presence of left artificial hip joint ==

== ENCOUNTER → 2023-04-14 12:58 | Outpatient (BNVA) | payer MEDICARE, BC, SELFPAY | PROVIDERS: PCP Physician Assistant; Referring Provider Physician Assistant; Visit Provider Student in an Organized Health Care Education/Training Program | DX: Z47.1 Aftercare following joint replacement surgery (principal); Z96.642 Presence of left artificial hip joint ==

== ENCOUNTER 2023-10-01 14:09 | Outpatient (REF) | payer MEDICARE, BC, SELFPAY ==
[2023-10-01 16:14] LABS: HCT 42.2 % (36.0-46.0); HGB 13.7 g/dL (11.2-15.7); MCHC 32.5 % (32.0-36.0); MCV 86 fL (80-95); MPV 9.1 fL (8.0-11.0); Platelet Count 257 10^3/uL (130-400); RDW 14.7 % (11.7-14.6); RDW-SD 46.9 fL; WBC 3.71 10^3/uL (4.4-10.8)
== END 2023-10-01 14:10 | disposition home or self-care (01) ==
LOC: NCHCN 14:09
PROVIDERS: PCP Physician Assistant; Visit Provider Physician Assistant
DX: E03.9 Hypothyroidism, unspecified (principal)
CPT/HCPCS: 85027; 84443

== ENCOUNTER 2023-10-04 10:30 | Emergency (ER) | payer MEDICARE, BC, SELFPAY ==
[2023-10-04 10:35] VITALS: BP 170/76; PULSE 74; RESP 18; TEMP 36.6; O2SAT 100
--- NOTE | 2023-10-04 10:45 | DI.CT_ITS ---
Exam(s) CT HEAD CERVICAL SPINE WO EXAM: CT HEAD CERVICAL SPINE WO CLINICAL HISTORY: fall, loc. TECHNIQUE: Imaging Protocol: Axial computed tomography images with coronal and sagittal reformatted images were created and reviewed COMPARISON: No exams were available for comparison FINDINGS: Head CT Ventricles and Extra axial spaces: Normal in size and morphology for the patient's age. Hemorrhage: None. Cerebral parenchyma: No evidence of mass or acute infarct. Mild atrophy consistent with the patient' s age. Midline shift: None. Brainstem/Cerebellum: Normal. Calvarium: Normal. Visualized Paranasal sinuses/Mastoids: Clear. Soft tissues: Unremarkable. Cervical Spine CT BONES: Vertebral body heights are maintained. Alignment is normal. There is no evidence of acute frac ture. Degenerative disc changes and facet degenerative changes are seen, greatest in the mid cervical regio n. There is some reversal of the normal cervical lordosis secondary to degenerative changes. No jasvir tral canal stenosis. Neural foraminal narrowing is noted at C4-5 through C6-7 on the left at C5-6 an d C6-7 on the right. SOFT TISSUES: No paraspinal hematoma. The airway appears intact. No pneumothorax is seen at the lung apices. IMPRESSION: Head CT: No acute abnormality. C-spine CT: Degenerative changes, no acute abnormality. RADIATION DOSE DELIVERED: Total DLP DATA REPOSITORY: All CT scans at this facility are submitted to the National Radiology Data Registry (NRDR) Dose Index Registry (DIR) with the [employer] ([employer]). RADIATION OPTIMIZATION: All CT scans at this facility use at least one of these dose optimization te chniques: automated exposure control; mA and/or kV adjustment per patient size (includes targeted exa ms where dose is matched to clinical indication); or iterative reconstruction.
--- NOTE | 2023-10-04 10:45 | RT.EKG_ITS ---
APPROVED REPORT Exam: Resting ECG Reason for Exam: ams Patient Location: E HR:67 bpm ECG Measurements Heart Rate 67 AXIS [place] 175 P 72 QRSd 98 QRS -23 QT 422 T 24 QTc 444 Conclusion Sinus rhythm...normal P axis, V-rate 60- 99
--- NOTE | 2023-10-04 10:54 | DI.RAD_ITS ---
Exam(s) XR SHOULDER RT COMPLETE 2+V EXAM: XR SHOULDER RT COMPLETE 2+V CLINICAL HISTORY: fall, shoulder injury, deformity ac. TECHNIQUE: 2D digital imaging was performed. Five views. COMPARISON: CR XR SHOULDER RT COMPLETE 2+V from 08/13/2021 FINDINGS: BONES: Fracture at the distal end of the clavicle. Small comminuted fragments are present. There is inferior displacement of proximal 1 cm of the distal fragment. No bony destructive lesion is seen. JOINTS: No dislocation present. Mild degenerative changes at the AC joint and glenohumeral joint. SOFT TISSUE: Normal. High-density material again noted in the right lung. IMPRESSION: Distal clavicle fracture. DATA REPOSITORY: RADIATION DOSE DELIVERED:
--- NOTE | 2023-10-04 11:13 | DI.RAD_ITS ---
Exam(s) XR CHEST 2V PA LATERAL EXAM: XR CHEST 2V PA LATERAL CLINICAL HISTORY: trauma TECHNIQUE: 2D digital imaging was performed. Two views. COMPARISON: DX XR CHEST 2 VIEWS from 12/25/2020 FINDINGS: HEART: Normal size. Aorta: Not dilated. PULMONARY VASCULATURE: Normal. LUNGS: Mom dense material is again noted in the anterior right upper lobe is well as anterior right l ower lobe. The left lung is clear. No acute infiltrate. PLEURAL SPACE: No pleural effusion or pneumothorax. BONE:Unremarkable for age. Soft tissues: Unremarkable. IMPRESSION: No acute abnormality. DATA REPOSITORY: RADIATION DOSE DELIVERED:
[2023-10-04 11:19] LABS: Abs Immature Grans 0.02 10^3/uL (0.0-0.06); Absolute Basophil Count 0.03 10^3/uL (0.0-0.2); Absolute Eosinophil Count 0.06 10^3/uL (0.0-0.7); Absolute Lymphocyte Count 1.03 10^3/uL (1.2-3.4); Absolute Monocyte Count 0.75 10^3/uL (0.1-0.8); Absolute Neutrophil Count 4.55 10^3/uL (1.2-6.7); Basophils % 0.5; Eosinophils % 0.9; HCT 36.4 % (36.0-46.0); HGB 11.9 g/dL (11.2-15.7); Immature Grans % 0.3; MCH 27.9 pg (27.0-33.0); MCHC 32.7 % (32.0-36.0); MCV 85 fL (80-95); MPV 8.6 fL (8.0-11.0); Monocytes % 11.6; Neutrophils % 70.7; Platelet Count 212 10^3/uL (130-400); RBC 4.27 10^6/uL (3.93-5.22); RDW 14.9 % (11.7-14.6); RDW-SD 46.3 fL; WBC 6.44 10^3/uL (4.4-10.8)
[2023-10-04 11:30] LABS: Anion Gap 13.1 mmol/L (3-11); BUN 20 mg/dL (7-18); CO2 27.9 mmol/L (21.0-32.0); CREATININE 0.9 mg/dL (0.55-1.02); Calcium 9.1 mg/dL (8.5-10.1); Chloride 103 mmol/L (98-107); Estimated GFR 64.63 (mL/min/1.73m2); Glucose 106 mg/dL (74-106); Potassium 3.2 mmol/L (3.5-5.1); Sodium 144 mmol/L (136-145)
--- NOTE | 2023-10-04 11:30 | DI.RAD_ITS ---
Exam(s) XR CLAVICLE RT EXAM: XR CLAVICLE RT CLINICAL HISTORY: clavicle injury TECHNIQUE: 2D digital imaging was performed. COMPARISON: No exams were available for comparison FINDINGS: BONES: Fracture at the distal clavicle at inferior displacement approximately 1 cm. Few small commin uted fragments are present. no bony destructive lesion is seen. JOINTS: No dislocation present. Mild degenerative changes at the AC joint and glenohumeral joint. SOFT TISSUE: Normal IMPRESSION: Distal clavicle fracture. DATA REPOSITORY: RADIATION DOSE DELIVERED:
[2023-10-04 11:53] LABS: Magnesium 1.8 mg/dL (1.8-2.4)
--- NOTE | 2023-10-04 11:58 | DI.VRAD_ITS ---
PROCEDURE INFORMATION: Exam: XR Right Clavicle, Complete Exam date and time: 10/04/2023 11:37 AM Age: 82 years old Clinical indication: Pain; Shoulder; Right TECHNIQUE: Imaging protocol: Radiologic exam of the right clavicle. Complete exam. Views: Any number of views. COMPARISON: CR XR SHOULDER RT COMPLETE 2+V 10/04/2023 11:31 AM FINDINGS: Bones/joints: Fracture of the distal third of the clavicle. Proximal segment is elevated by one full bone width. No acromioclavicular joint separation there is a small amount of arthrosis. Soft tissues: Mild edema of the fracture site. IMPRESSION: Fracture of the distal third of the clavicle. Proximal segment is elevated by one full bone width. No acromioclavicular joint separation there is a small amount of arthrosis. Comminuted fracture distal right clavicle. Dictated and Authenticated by: George Shi MD. Ordering:FRANCI Manning MD
--- NOTE | 2023-10-04 11:59 | DI.VRAD_ITS ---
PROCEDURE INFORMATION: Exam: XR Right Shoulder Exam date and time: 10/04/2023 11:31 AM Age: 82 years old Clinical indication: Pain; Shoulder; Right TECHNIQUE: Imaging protocol: Radiologic exam of the right shoulder. Views: 2 or more views. COMPARISON: CR XR SHOULDER RT COMPLETE 2+V 08/13/2021 11:42 AM FINDINGS: Bones/joints: No fracture or dislocation involving the glenohumeral joint. The acromioclavicular joint has mild arthrosis. Comminuted fracture of the distal clavicle. Proximal fragment is elevated by one full bone width. Soft tissues: Mild edema. IMPRESSION: Comminuted fracture distal right clavicle. Dictated and Authenticated by: George Shi MD. Ordering:FRANCI Manning MD
--- NOTE | 2023-10-04 12:04 | DI.VRAD_ITS ---
PROCEDURE INFORMATION: Exam: XR Chest Exam date and time: 10/04/2023 11:29 AM Age: 82 years old Clinical indication: Pain; Right-sided TECHNIQUE: Imaging protocol: Radiologic exam of the chest. Views: 2 views. COMPARISON: CT CHEST WO 03/29/2021 3:29 PM FINDINGS: Lungs: Redemonstrated is the dense material in the medial portion of the right lobe anterior inferior right upper lobe and the right middle lobe area. No lobar consolidations. Pleural spaces: Unremarkable. No pleural effusion. No pneumothorax. Heart/Mediastinum: Unremarkable. No cardiomegaly. Bones/joints: Unremarkable. IMPRESSION: 1. No acute findings. 2. Longstanding radiodense material within the right lung consistent with remote barium aspiration. Dictated and Authenticated by: George Shi MD. Ordering:FRANCI Manning MD
--- NOTE | 2023-10-04 12:08 | DI.VRAD_ITS ---
PROCEDURE INFORMATION: Exam: CT Head Without Contrast Exam date and time: 10/04/2023 11:25 AM Age: 82 years old Clinical indication: Other: Fall, loc TECHNIQUE: Imaging protocol: Computed tomography of the head without contrast. Radiation optimization: All CT scans at this facility use at least one of these dose optimization techniques: automated exposure control; mA and/or kV adjustment per patient size (includes targeted exams where dose is matched to clinical indication); or iterative reconstruction. COMPARISON: No relevant prior studies available. FINDINGS: Brain: There is ventricular and cortical sulcal prominence consistent with central and cortical atrophy. There is no acute hemorrhage mass or shift.There is minimal low attenuation involving the periventricular and subcortical white matter nonspecific but likely small vessel ischemic change/microangiopathy. There is no evidence of an acute cortical or major vascular territory infarct. No abnormal extra-axial collections are identified. Intracranial vascular calcification is noted. There is no hyperdense intravascular thrombus Cerebral ventricles: There is ventricular enlargement which may be related to central atrophy. There are no findings to suggest acute hydrocephalus Paranasal sinuses: No significant sinus opacification or fluid level. Mastoid air cells: No significant mastoid opacification. Orbital cavities: The patient has had prior bilateral lens replacement. Calcification is noted posteriorly in the right globe, best seen superiorly. This is nonspecific possibly drusen. No evidence of an intraorbital mass. Bones/joints: There is no acute calvarial abnormality Soft tissues: No significant subcutaneous abnormality. No significant subcutaneous abnormality IMPRESSION: No acute findings. PROCEDURE INFORMATION: Exam: CT Cervical Spine Without Contrast Exam date and time: 10/04/2023 11:25 AM Age: 82 years old Clinical indication: Other: Fall, loc TECHNIQUE: Imaging protocol: Computed tomography of the cervical spine without contrast. Radiation optimization: All CT scans at this facility use at least one of these dose optimization techniques: automated exposure control; mA and/or kV adjustment per patient size (includes targeted exams where dose is matched to clinical indication); or iterative reconstruction. COMPARISON: CT CHEST WO 03/29/2021 3:29 PM FINDINGS: Bones/joints: Bony structures are osteopenic. There is reversal of the cervical lordosis. This could be positional or due to spasm. There is no evidence of an acute fracture in the cervical spine. There is no decrease of vertebral body height. There is no acute or destructive bony abnormality. There is disc space narrowing in the cervical spine most prominent at C5-C6, C6-C7. There are disc osteophyte complexes, spondylitic changes of the endplates, uncovertebral and facet arthropathy. There is narrowing of the canal at the level of the disc spaces most prominent at C5-C6. Degenerative changes also lead to foraminal narrowing most prominent at C5-C6. There is no CT evidence of a large protrusion or extrusion. Lungs: There is no significant consolidation at the lung apices. There is pleuroparenchymal scarring. Thyroid: Surgical clips are seen adjacent to the left lobe of the thyroid Soft tissues: There is no evidence of a discrete soft tissue mass in the neck. IMPRESSION: 1. No acute fracture. 2. Reversal of the cervical lordosis, cervical spondylosis, degenerative disc disease. Dictated and Authenticated by: Funmilayo Arriaga MD. Ordering:FRANCI Manning MD
--- NOTE | 2023-10-04 12:13 | ED.GENADUL_ITS ---
Discharge Plan Disposition Patient Disposition: Home Condition: Stable Discharge Details Clinical Impression: Abrasion of skin, Fall, Clavicle fracture Primary Care Provider: Munir Robin ED Provider: Kerri Garcia Home Meds and New Rx's Prescriptions: Continued calcium citrate-vitamin D3 [Citracal + D Maximum] 315 mg-6.25 mcg (250 unit) tablet 2 tab PO DAILY multivitamin Tablet 1 tab PO DAILY Prolia 60 mg/mL syringe 60 mg subcut [id number] Patient Comments: 01/20/23 Pt thinks she last got injection in 09/2022 but not certain levothyroxine [Levo-T] 75 mcg tablet 50 mcg PO DAILY memantine 5 mg tablet 5 mg PO BID omeprazole 40 mg capsule,delayed release(DR/EC) 40 cap PO DAILY Patient Comments: TAKE ONE CAPSULE BY MOUTH EVERY MORNING 30 MIN BEFORE MEAL acetaminophen 500 mg tablet 1,000 mg PO Q8H PRN Qty: 90 0RF Rx Instructions: Take two tablets up to every 8 hours as needed for pain Discharge Instructions Instructions: Clavicle Fracture (ED) Additional Instructions: It may be a good idea to have a life alert button if you need it at home as you still live independently Use your sling during the day when you are up and about You should not worsening while driving Recommend ibuprofen and Tylenol as needed for discomfort Orthopedics will call you on Friday for follow-up, your clavicle is fractured and you may or may not need surgery depending on the orthopedist's discretion I recommend a multivitamin daily, your potassium is slightly low Please return earlier should you have new or worsening complaints Referrals: Munir Robin [Primary Care Provider] - 2 days Jak Rodgers MD [ [facility] STAFF PHYSICIAN] - 2 days HPI General Date/Time Provider Initiated Documentation: 10/04/23 10:43 . HPI Narrative: This 82-year-old female presents with right shoulder injury at some point during the night. She states she also scraped her leg. She states when she went to bed she had no injury and when she woke up in the morning she felt fine except she had pain in her shoulder and a scrape on her leg. She thinks she might have tripped and fallen during the night but is uncertain. She states she denies any dizziness, fever, chills. Related Data Home Medications Medication Instructions Recorded Confirmed calcium citrate 315 mg 2 tab PO DAILY 05/21/21 10/04/23 calcium-vitamin D3 6.25 mcg (250 unit) tablet (Citracal + Vitamin D Maximum) denosumab 60 mg/mL subcutaneous 60 mg subcut [id number] 05/21/21 10/04/23 syringe (Prolia) levothyroxine 75 mcg tablet 50 mcg PO DAILY 05/21/21 10/04/23 (Levo-T) multivitamin 1 tab PO DAILY 05/21/21 10/04/23 omeprazole 40 mg capsule,delayed 40 cap PO DAILY 05/23/22 10/04/23 release acetaminophen 500 mg tablet 1,000 mg (2 x 500 mg) PO Q8H PRN 01/21/23 10/04/23 pain #90 tabs memantine 5 mg tablet 5 mg PO BID 02/03/23 10/04/23 Previous Rx's Medication Instructions Recorded acetaminophen 500 mg tablet 1,000 mg (2 x 500 mg) PO Q8H PRN 01/21/23 pain #90 tabs Allergies Allergy/AdvReac Type Severity Reaction Status Date / Time No Known Allergies Allergy Verified 10/04/23 10:39 General Stated Complaint: Orthopedic CARLEY: 3 Exam Narrative Exam Narrative: Alert and oriented 82-year-old female without any visible sign of head injury, pupils equal round reactive to light and accommodation, extraocular muscles intact, no hemotympanum, uvula midline, oropharynx patent no midline neck tenderness, lungs clear to auscultation bilaterally, cardiac rate rhythm regular, obvious deformity noted to right shoulder/clavicle talar area, neurovascularly intact in bilateral lower extremities, abrasion to right patel, nontender, no visible sign of trauma to hips or knees bilaterally, GCS 15, ambulatory with steady gait Course Vital Signs Vital signs: Vital Signs Temperature 36.6 C 10/04/23 10:35 Pulse 74 10/04/23 10:35 Respiratory Rate 18 10/04/23 10:35 Blood Pressure 170/76 H 10/04/23 10:35 Pulse Oximetry 100 10/04/23 10:35 Temperature 36.6 C 10/04/23 10:35 Temperature Source Oral 10/04/23 10:35 Pulse 74 10/04/23 10:35 Respiratory Rate 18 10/04/23 10:35 Respiratory Effort Normal 10/04/23 10:38 Blood Pressure 170/76 H 10/04/23 10:35 Blood Pressure Position Sitting 10/04/23 10:35 Pulse Oximetry 100 10/04/23 10:35 Oxygen Delivery Method Room Air 10/04/23 10:35 Oxygen Flow Rate 0 10/04/23 10:35 Lab/Test Results Lab/Test Results: Laboratory Tests Range/Units 10/04/23 11:14 WBC (4.4-10.8) 10^3/uL 6.44 RBC (3.93-5.22) 10^6/uL 4.27 Hgb (11.2-15.7) g/dL 11.9 Hct (36.0-46.0) % 36.4 MCV (80-95) fL 85 MCH (27.0-33.0) pg 27.9 MCHC (32.0-36.0) % 32.7 RDW (11.7-14.6) % 14.9 H Plt Count (130-400) 10^3/uL 212 MPV (8.0-11.0) fL 8.6 Immature Gran % 0.3 Neutrophils % 70.7 Lymphocytes % 16.0 Monocytes % 11.6 Eosinophils % 0.9 Basophils % 0.5 Nucleated RBC % (0.0-0.3) % 0.0 Absolute Neutrophils (1.2-6.7) 10^3/uL 4.55 Absolute Lymphocytes (1.2-3.4) 10^3/uL 1.03 L Absolute Monocytes (0.1-0.8) 10^3/uL 0.75 Absolute Eosinophils (0.0-0.7) 10^3/uL 0.06 Absolute Basophils (0.0-0.2) 10^3/uL 0.03 Sodium (136-145) mmol/L 144 Potassium (3.5-5.1) mmol/L 3.2 L Chloride (98-107) mmol/L 103 Carbon Dioxide (21.0-32.0) mmol/L 27.9 Anion Gap (3-11) mmol/L 13.1 H BUN (7-18) mg/dL 20 H Creatinine (0.55-1.02) mg/dL 0.9 Est GFR (CKD-EPI 2020) (mL/min/1.73m2) 64.63 Glucose (74-106) mg/dL 106 Calcium (8.5-10.1) mg/dL 9.1 Magnesium (1.8-2.4) mg/dL 1.8 Medical Decision Making 82-year-old female in no acute distress presenting with obvious deformity to shoulder after unknown episode which likely occurred in the night Patient states that she went to bed without any known injuries and when she woke up she was in her bed and had pain to her right clavicle with a deformity and an abrasion to her patel, she is unsure as to how this happened. She states that she has pain with movement of her right shoulder. I did order an syncope workup secondary to patient's age, EKG does not show evidence of acute abnormality, please see attendings documentation. Diagnostic labs with mild hypokalemia unlikely contributing to today's presentation and mild dehydration, able to tolerate p.o. Will supplement with 40 mEq of potassium in the emergency department, magnesium within normal limits Urinalysis is pending, patient requesting discharge home. X-ray shows evidence of clavicle fracture, lateral, no evidence of shoulder dislocation, CT head and cervical spine does not show evidence of acute abnormality per radiology interpretation my review Diagnostic labs reviewed above, patient is ambulatory with steady gait. She does live independently she is encouraged to use caution as her daughter is on medication right now but she does have a granddaughter who is able to check on her per patient. Patient is ambulatory with steady gait in a sling, she is left-hand dominant and we did offer home health but she feels competent and she will be able to manage at home until her daughter returns. She is given low threshold to return should she have new or worsening complaints and while she does have short-term memory loss and is forgetful on assessment she is fully alert and oriented and competent to make decisions at time of reassessment. Quality:SDOH Health Related Social Needs: No Data to Display PFSH All Active Problems (Updated 10/04/23 @ 12:17 by SOCORRO Lowry) Clavicle fracture (Acute) Fall (Acute) Abrasion of skin (Acute) Skin cancer screening (Acute) History of actinic keratosis (Acute) Sensorineural hearing loss (SNHL) of both ears (Acute) History of total left hip arthroplasty (Acute 01/21/23) History of right hip replacement (Acute 06/19/22) Hypothyroidism (Chronic) Osteoporosis (Chronic) Right rotator cuff tendonitis (Acute) Medical History GERD (gastroesophageal reflux disease) History of hyperparathyroidism Surgical History History of colonoscopy History of hysterectomy History of surgery parathyroid and part of thyroid per patient. Social History Smoking/Tobacco Use Status: Never Smoking risk assessment performed?: Yes Alcohol Intake: current Alcohol Intake frequency: 0-2 drinks per day Alcohol type: wine Drug use: Never Substance use type: does not use Housing: house Current gender identity: female Do you feel safe at home: Yes Do you feel safe in your relationship?: Yes Additional Social history: Primary caregiver for . Daughter coming DOS and after if needed.
[2023-10-04] MEDS: Potassium Chloride 20 MEQ TABCR 40 MEQ PO (12:15)
[2023-10-04 14:53] LABS: Bilirubin Negative (Negative); Blood Trace-intact (Negative); Clarity Clear (Clear); Glucose Negative (Negative); Ketones Trace mg/dL (Negative); Leukocyte Esterase Negative (Negative); Nitrite Negative (Negative); Specific Gravity 1.015 (1.005-1.025); Urobilinogen 0.2 mg/dL (Up to 0.2)
[2023-10-04 15:16] LABS: Bacteria Negative HPF (Negative); C & S Indicated? No; Casts Negative LPF (Negative); Crystals Negative HPF (Negative); Epithelial Cells Rare HPF (Negative); Mucus Negative (Negative); WBC 0-2 HPF (0-5)
== END 2023-10-04 12:37 | disposition home or self-care (01) ==
PROVIDERS: Emergency Provider Physician Assistant; PCP Physician Assistant
DX: S42.031A Displaced fracture of lateral end of right clavicle, initial encounter for closed fracture (principal); S80.811A Abrasion, right lower leg, initial encounter; W19.XXXA Unspecified fall, initial encounter
CPT/HCPCS: 36415; 80048; 93005; 99284; 70450; 71046; 72125; 73000; 73030; 81003; 81015; 83735; 85025; 93010; 99283

== ENCOUNTER 2023-10-07 09:57 | Outpatient (CLI) | payer MEDICARE, BC, SELFPAY ==
--- NOTE | 2023-10-07 10:13 | DI.RAD_ITS ---
Exam(s) XR CLAVICLE RT EXAM: XR CLAVICLE RT CLINICAL HISTORY: F/U FRACTURE TECHNIQUE: 2D digital imaging was performed of the right clavicle. Two images were obtained. AP and axial views were obtained. COMPARISON: CR,XR XR CLAVICLE RT from 10/04/2023 CR,XR XR SHOULDER RT COMPLETE 2+V from 10/04/2023 FINDINGS: BONES: There does not appear to be significant change in alignment of the comminuted fracture of the distal right clavicle. No bony destructive lesion is seen. JOINTS: No dislocation present. SOFT TISSUE: Normal IMPRESSION: Stable comminuted right clavicular fracture. DATA REPOSITORY: RADIATION DOSE DELIVERED:
== END 2023-10-07 09:58 | disposition home or self-care (01) ==
LOC: DIORS 09:58
PROVIDERS: PCP Physician Assistant; Referring Provider Physician Assistant; Visit Provider Student in an Organized Health Care Education/Training Program
DX: S42.031A Displaced fracture of lateral end of right clavicle, initial encounter for closed fracture; X58.XXXA Exposure to other specified factors, initial encounter
CPT/HCPCS: 99214; 73000

== ENCOUNTER → 2023-10-17 04:02 | Outpatient (CLI) | payer MEDICARE, BC, SELFPAY ==
--- NOTE | 2023-10-17 | DI.MRI_ITS ---
Exam(s) MR BRAIN WO EXAM: MR BRAIN WO CLINICAL HISTORY: AMNESIA R41.3 MEMORY IMPAIRMENT TECHNIQUE: Multiplanar multisequence MRI of the brain was performed. COMPARISON: No exams were available for comparison FINDINGS: CEREBRAL PARENCHYMA: There is no evidence of intracranial hemorrhage, mass effect, or shift of midline structures. There are no extra-axial fluid collections. Ventricles are not enlarged or shifted. There is no significant focal signal abnormality in the cerebellar hemispheres nor within the luana, m idbrain, and thalami. There is only mild increased periventricular signal seen on FLAIR imaging. There is no significant focal signal abnormality evident on diffusion imaging to suggest acute ischem ic event. There is symmetrical involutional change. Size of the ventricles is commensurate with the size of th e overlying cortical sulci. PITUITARY GLAND: No mass nor parasellar abnormality. No obvious abnormality in the cavernous sinuses. FLOW VOIDS: The expected flow void are noted. No evidence of obvious aneurysm nor obvious vascular ma lformation. PARANASAL SINUSES: The visualized paranasal sinuses appear unremarkable. No obvious finding ORBITS: No obvious findings. IMPRESSION: No significant acute intracranial findings on this noninfused MRI scan of the brain. Mild periventricular signal abnormality consistent with mild chronic ischemic changes. Symmetrical atrophy-involutional change. Size of the ventricles appears commensurate with the size o f the overlying cortical sulci. DATA REPOSITORY:
== END ==
PROVIDERS: PCP Physician Assistant; Visit Provider Physician Assistant
DX: I67.82 Cerebral ischemia (principal)
CPT/HCPCS: 70551

== ENCOUNTER 2023-12-09 14:12 | Outpatient (CLI) | payer MEDICARE, BC, SELFPAY ==
--- NOTE | 2023-12-09 07:45 | DI.RAD_ITS ---
Exam(s) XR CLAVICLE RT EXAM: XR CLAVICLE RT INDICATION: F/U FRACTURE. COMPARISON: CR,XR XR CLAVICLE RT from 10/04/2023 CR XR CLAVICLE RT from 10/07/2023 TECHNIQUE: 2D digital imaging was performed. Two views. FINDINGS: No change in alignment of distal clavicle fracture. Some increased callus formation. Two adjacent r ounded bony densities are noted beneath the level of the distal clavicle, not seen previously . DATA REPOSITORY: RADIATION DOSE DELIVERED:
== END 2023-12-09 14:13 | disposition home or self-care (01) ==
LOC: DIORS 14:12
PROVIDERS: PCP Physician Assistant; Visit Provider Student in an Organized Health Care Education/Training Program
DX: S42.031D Displaced fracture of lateral end of right clavicle, subsequent encounter for fracture with routine healing; X58.XXXD Exposure to other specified factors, subsequent encounter
CPT/HCPCS: 99213; 73000

== ENCOUNTER 2024-01-26 11:45 | Outpatient (CLI) | payer MEDICARE, BC, SELFPAY ==
--- NOTE | 2024-01-26 11:09 | DI.RAD_ITS ---
Exam(s) XR HIP LT AP LAT ONLY EXAM: XR HIP LT AP LAT ONLY CLINICAL HISTORY: ANNUAL F/U L ANDERSON. TECHNIQUE: 2D digital imaging was performed. Two images were obtained. AP and lateral views were ob tained. COMPARISON: CR XR HIP LT COMPLETE AP PELVIS from 02/03/2023 FINDINGS: BONES: There are stable post operative changes of a left total hip replacement present. No fracture or dislocation. JOINTS: The orthopedic hardware is in good position. No evidence of hardware loosening. SOFT TISSUE: Normal. IMPRESSION: Stable left total hip replacement. DATA REPOSITORY: RADIATION DOSE DELIVERED:
== END 2024-01-26 11:46 | disposition home or self-care (01) ==
LOC: DIORS 11:46
PROVIDERS: PCP Physician Assistant; Visit Provider Physician Assistant
DX: Z47.1 Aftercare following joint replacement surgery (principal); Z96.642 Presence of left artificial hip joint
CPT/HCPCS: 99213; 73502

== ENCOUNTER 2024-02-04 11:41 | Outpatient (CLI) | payer MEDICARE, BC, SELFPAY ==
--- NOTE | 2024-02-04 08:45 | DI.RAD_ITS ---
Exam(s) XR CLAVICLE RT EXAM: XR CLAVICLE RT CLINICAL HISTORY: F/U FRACTURE TECHNIQUE: 2D digital imaging was performed of the right clavicle. Two images were obtained. AP and axial views were obtained. COMPARISON: CR XR CLAVICLE RT from 12/09/2023 FINDINGS: BONES: There has been no change in alignment of the comminuted fracture of the distal right clavicle. No new fracture is seen. No bony destructive lesion is seen. JOINTS: No dislocation present. Degenerative changes are seen at the acromioclavicular joint. SOFT TISSUE: There again seen 2 densities inferior to the distal clavicle which appears stable. IMPRESSION: Stable alignment of the distal right clavicular fracture. DATA REPOSITORY: RADIATION DOSE DELIVERED:
== END 2024-02-04 11:42 | disposition home or self-care (01) ==
LOC: DIORS 11:41
PROVIDERS: PCP Physician Assistant; Visit Provider Student in an Organized Health Care Education/Training Program
DX: S42.033D Displaced fracture of lateral end of unspecified clavicle, subsequent encounter for fracture with routine healing (principal); X58.XXXD Exposure to other specified factors, subsequent encounter
CPT/HCPCS: 99213; 73000

== ENCOUNTER 2024-03-24 12:25 | Outpatient (REF) | payer MEDICARE, BC, SELFPAY ==
[2024-03-24 16:38] LABS: TSH 5.71 uIU/Ml (0.36-3.74)
== END 2024-03-24 12:26 | disposition home or self-care (01) ==
LOC: NCHCN 12:25
PROVIDERS: PCP Physician Assistant; Visit Provider Physician Assistant
DX: E03.9 Hypothyroidism, unspecified (principal)
CPT/HCPCS: 84443

== ENCOUNTER 2025-03-15 18:26 | Outpatient (REF) | payer MEDICARE, BC, SELFPAY ==
--- NOTE | 2025-03-15 16:40 | SKI_PTH ---
PATIENT: Aida Monaco LOC: [facility] U#:[id number] AGE/SX: 84/F ROOM: RE03/15/[address]: Munir Robin : 1940 BED: DIS: 03/15/2025 SPEC #: [id number] RECD: 03/15/25 18:34 STATUS: SAMIR REJuan C #: [id number] JAYDA: 03/15/25 16:[address]: Munir Robin DEPT: Surgical Specimen RECD BY: Kerri Gasca Tissues: 1 - SKIN BIOPSY(SHAVE/PUNCH) Procedures: SKIN LEVEL 4 Comments: [id number]
== END 2025-03-15 18:27 | disposition home or self-care (01) ==
LOC: NCHCN 18:26
PROVIDERS: PCP Physician Assistant; Visit Provider Physician Assistant
DX: C44.629 Squamous cell carcinoma of skin of left upper limb, including shoulder (principal)
CPT/HCPCS: 88305

== ENCOUNTER → 2025-04-06 13:46 | Outpatient (BNVA) | payer MEDICARE, BC, SELFPAY | PROVIDERS: PCP Physician Assistant; Referring Provider Physician Assistant; Visit Provider Physical Therapy Assistant | DX: C44.90 Unspecified malignant neoplasm of skin, unspecified (principal) | CPT/HCPCS: 99213 ==

== ENCOUNTER → 2025-04-29 07:43 | Outpatient (BNVA) | payer MEDICARE, BC, SELFPAY | PROVIDERS: PCP Physician Assistant; Referring Provider Physician Assistant; Visit Provider Surgery | DX: D17.22 Benign lipomatous neoplasm of skin and subcutaneous tissue of left arm (principal) | CPT/HCPCS: 11402 ==

== ENCOUNTER 2025-04-29 08:09 | Outpatient (REF) | payer MEDICARE, BC, SELFPAY ==
--- NOTE | 2025-04-29 08:15 | SKI_PTH ---
PATIENT: Aida Monaco LOC: [facility] U#:[id number] AGE/SX: 84/F ROOM: RE04/29/[address]: Sulma Kelley MD : 1940 BED: DIS: 04/29/2025 SPEC #: [id number] RECD: 04/29/25 12:09 STATUS: SAMIR COLES #: [id number] JAYDA: 04/29/25 08:[address]: Sulma Kelley DEPT: Surgical Specimen RECD BY: Kerri Gasca ENTERED: 04/29/25 12:10 SP TYPE: CHAIM BRIGHT DR: Munir Robin Tissues: 1 - SKIN BIOPSY(SHAVE/PUNCH) Procedures: SKIN LEVEL 4 Comments: [id number]
== END 2025-04-29 08:10 | disposition home or self-care (01) ==
LOC: LBN 08:09
PROVIDERS: PCP Physician Assistant; Visit Provider Surgery
DX: L90.5 Scar conditions and fibrosis of skin (principal)
CPT/HCPCS: 88305